=== PATIENT | female | born 1970 | race Caucasian/White ===

== ENCOUNTER 2017-01-10 16:24 | Inpatient (IN) | payer MEDICARE, OTHER ==
[2017-01-10] MEDS ORDERED: NITROGLYCERIN SL TABS 0.4 MG TAB SUBLINGUAL PRN (16:33)
[2017-01-10] MEDS ORDERED: HEPARIN SODIUM,PORCINE 5,000 UNIT/ML 1 ML VIAL IV PRN (16:34)
--- NOTE | 2017-01-10 16:37 | ED ---
General Adult HPI - General Stated complaint: DVT Time Seen by Provider: 01/10/17 16:26 Source: RN notes reviewed, old records reviewed - History of Present Illness Initial comments: This is a 46-year-old female the ER for evaluation bear patient presents today for evaluation of shortness of breath cough congestion weakness dizziness lightheadedness and left leg pain. Patient has history of lupus, is mostly on but there is but is not currently taking no secondary to no primary care doctor , patient is a transfer patient accepted for evaluation and treatment of PE, DVT. At this time patient denies new chest pain or shortness of breath, patient does not feel like she's got passed out - Related Data Home Medications Medication Instructions Recorded Confirmed DULoxetine HCL [Cymbalta] 60 mg PO DAILY 11/07/15 11/07/15 Gabapentin 800 mg PO DAILY 11/07/15 11/07/15 HYDROcodone/APAP 5-325MG [[place] 1 tab PO Q6HR PRN 11/07/15 11/07/15 5-325] LORazepam [Ativan] 1 mg PO BID 11/07/15 11/07/15 OXcarbazepine [Trileptal] 600 mg PO BID 11/07/15 11/07/15 QUEtiapine [SEROquel] 200 mg PO HS 11/07/15 11/07/15 Warfarin [Coumadin] 7.5 mg PO DAILY 11/07/15 11/07/15 Allergies Allergy/AdvReac Type Severity Reaction Status Date / Time cephalexin monohydrate Allergy Unknown Verified 11/07/15 18:33 [From Keflex] hydromorphone HCl Allergy Unknown Verified 11/07/15 18:33 [From Dilaudid] latex Allergy Unknown Verified 11/07/15 18:33 Review of Systems ROS Statement: Those systems with pertinent positive or pertinent negative responses have been documented in the HPI. ROS Other: All systems not noted in ROS Statement are negative. Past Medical History Additional Past Medical History / Comment(s): Lupus History of Any Multi-Drug Resistant Organisms: Unobtainable Past Surgical History: Unable to Obtain Past Psychological History: Unable to Obtain Smoking Status: Unknown if ever smoked Past Alcohol Use History: Unable to Obtain Past Drug Use History: Unable to Obtain General Exam General appearance: alert, in no apparent distress Head exam: Present: atraumatic, normocephalic, normal inspection Eye exam: Present: normal appearance, PERRL, EOMI. Absent: scleral icterus, conjunctival injection, periorbital swelling ENT exam: Present: normal exam, mucous membranes moist Neck exam: Present: normal inspection. Absent: tenderness, meningismus, lymphadenopathy Respiratory exam: Present: normal lung sounds bilaterally. Absent: respiratory distress, wheezes, rales, rhonchi, stridor Cardiovascular Exam: Present: regular rate, normal rhythm, normal heart sounds. Absent: systolic murmur, diastolic murmur, rubs, gallop, clicks GI/Abdominal exam: Present: soft, normal bowel sounds. Absent: distended, tenderness, guarding, rebound, rigid Extremities exam: Present: normal inspection, full ROM, normal capillary refill. Absent: tenderness, pedal edema, joint swelling, calf tenderness Back exam: Present: normal inspection Neurological exam: Present: alert, oriented X3, CN II-XII intact Psychiatric exam: Present: normal affect, normal mood Skin exam: Present: warm, dry, intact, normal color. Absent: rash Course - Reevaluation(s) Reevaluation #1: 01/10/17 16:36 Patient is in no acute distress Medical Decision Making - Medical Decision Making 46 female here for evaluation of chest pain shortness of breath leg pain. Positive the positive DVT, history of lupus is not on blood thinners, patient will be admitted for evaluation and treatment Disposition Clinical Impression: Pulmonary embolism, DVT (deep venous thrombosis), SLE (systemic lupus erythematosus) Disposition: ADMITTED IP TO THIS [facility] Condition: Fair Referrals: None,Stated [Primary Care Provider] - 1-2 days
[2017-01-10] MEDS ORDERED: SODIUM CHLORIDE 0.9% 500 ML IV STA (16:42)
[2017-01-10] MEDS ORDERED: SODIUM CHLORIDE 0.9% 1,000 ML IV STA (16:42)
[2017-01-10] MEDS ORDERED: MORPHINE SULFATE 4 MG/ML SYRINGE IVP STA (16:52)
[2017-01-10] MEDS: HEPARIN SODIUM,PORCINE/D5W PMX 25,000 UNIT in DEXTROSE/WATER 1 500ML.BAG IV SCH (17:04)
[2017-01-10 19:08] LABS: Anisocytosis Slight; CH 26.9; HCT 34.5 % (34.0-46.0); HDW 2.97; HGB 10.8 gm/dL (11.4-16.0); Hypochromasia Moderate; MCH 27.3 pg (25.0-35.0); MCHC 31.3 g/dL (31.0-37.0); MCV 87.2 fL (80.0-100.0); Mean Platelet Volume 8.7; RBC 3.96 m/uL (3.80-5.40); RDW 17.6 % (11.5-15.5); WBC 10.8 k/uL (3.8-10.6)
[2017-01-10 19:33] LABS: Creatine Kinase MB 1.4 ng/mL (0.0-2.4)
[2017-01-10 19:39] LABS: Troponin I 0.302 ng/mL (0.000-0.034)
[2017-01-10 19:39] LABS: Anion Gap 11 mmol/L; Blood Urea Nitrogen 13 mg/dL (7-17); Calcium 8.6 mg/dL (8.4-10.2); Carbon Dioxide 21 mmol/L (22-30); Chloride 104 mmol/L (98-107); Glucose 119 mg/dL (74-99); Magnesium 1.8 mg/dL (1.6-2.3); Non-African American GFR(MDRD) >60 (>60 ml/min/1.73 sqM); Potassium 3.5 mmol/L (3.5-5.1); Sodium 136 mmol/L (137-145)
--- NOTE | 2017-01-10 20:00 | ECHOF ---
Referral Reason:pe MEASUREMENTS -------- HEIGHT: 175.3 cm WEIGHT: 106.6 kg BP: 108/71 RVIDd: 3.7 cm (< 3.3) IVSd: 1.3 cm (0.6 - 1.1) LVIDd: 4.1 cm (3.9 - 5.3) LVPWd: 1.3 cm (0.6 - 1.1) IVSs: 1.6 cm LVIDs: 3.0 cm LVPWs: 1.6 cm LAESV Index (A-L): 17.93 ml/m Ao Diam: 2.9 cm (2.0 - 3.7) AV Cusp: 1.9 cm (1.5 - 2.6) LA Diam: 2.6 cm (2.7 - 3.8) MV EXCURSION: 16.963 mm (> 18.000) MV EF SLOPE: 82 mm/s (70 - 150) EPSS: 0.6 cm MV E Steve: 0.50 m/s MV DecT: 305 ms MV A Steve: 0.79 m/s MV E/A Ratio: 0.64 RAP: 5.00 mmHg RVSP: 39.16 mmHg FINDINGS -------- Sinus rhythm with extra systolic beats. This was a technically adequate study. There is mild concentric left ventricular hypertrophy. Overall left ventricular systolic function is normal with, an EF between 55 - 60 %. The right ventricle is severely enlarged. Normal LA size by volume 22+/-6 ml/m2. RA appears enlarged. Aortic valve is trileaflet and is mildly thickened. There is no evidence of aortic regurgitation. There is no evidence of aortic stenosis. The mitral valve leaflets are mildly thickened. There is trace to mild mitral regurgitation. [id number]-vf-[id number] tricuspid regurgitation present. There is mild pulmonary hypertension. The right ventricular systolic pressure, as measured by Doppler, is 39.16mmHg. The pulmonic valve was not well visualized. The aortic root size is normal. The inferior vena cava is mildly dilated. CONCLUSIONS -------- 1. Sinus rhythm with extra systolic beats. 2. Ogcm-sd-vkbrpzpw tricuspid regurgitation present. 3. There is mild pulmonary hypertension. 4. The right ventricular systolic pressure, as measured by Doppler, is 39.16mmHg. 5. The pulmonic valve was not well visualized. 6. The aortic root size is normal. 7. The inferior vena cava is mildly dilated. 8. This was a technically adequate study. 9. There is mild concentric left ventricular hypertrophy. 10. The right ventricle is severely enlarged. 11. Normal LA size by volume 22+/-6 ml/m2. 12. RA appears serverly enlarged. 13. Aortic valve is trileaflet and is mildly thickened. 14. The mitral valve leaflets are mildly thickened. 15. There is trace to mild mitral regurgitation. MIDDLE SCHOOL TEACHER: Lew Farooq RDCS
[2017-01-10] MEDS ORDERED: ONDANSETRON 4 MG/2 ML VIAL IVP PRN (20:30)
[2017-01-10] MEDS: GABAPENTIN 400 MG CAP PO SCH (21:04)
[2017-01-10] MEDS ORDERED: POTASSIUM CHLORIDE ER 20 MEQ TAB.ER PO STA (22:35)
[2017-01-10] MEDS: METOPROLOL TARTRATE 12.5 MG TAB PO SCH (23:48)
[2017-01-11 00:31] LABS: Creatine Kinase MB 1.2 ng/mL (0.0-2.4)
[2017-01-11 00:38] LABS: Troponin I 0.233 ng/mL (0.000-0.034)
[2017-01-11] MEDS: MORPHINE SULFATE 4 MG/ML SYRINGE IVP PRN ×5 (00:56→20:48)
[2017-01-11] MEDS: HEPARIN SODIUM,PORCINE/D5W PMX 25,000 UNIT in DEXTROSE/WATER 1 500ML.BAG IV SCH ×2 (05:40→17:18)
[2017-01-11 05:58] LABS: Anisocytosis Slight; Basophils # (A) 0.1 k/uL (0-0.2); Basophils % (A) 1 %; CH 27.6; CHCM 30.8; Eosinophils # (A) 0.1 k/uL (0-0.7); Eosinophils % (A) 1 %; HDW 2.95; HGB 9.9 gm/dL (11.4-16.0); Hypochromasia Moderate; Luc # (Auto) 0.17; Luc % (Auto) 2; Lymphocytes # (A) 2.9 k/uL (1.0-4.8); Lymphocytes % (A) 31 %; MCH 26.9 pg (25.0-35.0); MCHC 29.9 g/dL (31.0-37.0); Mean Platelet Volume 9.6; Monocytes # (A) 0.5 k/uL (0-1.0); Monocytes % (A) 5 %; Neutrophils # (A) 5.6 k/uL (1.3-7.7); Neutrophils % (A) 60 %; RBC 3.67 m/uL (3.80-5.40); RDW 19.1 % (11.5-15.5); WBC 9.4 k/uL (3.8-10.6); WBC (Perox) 10.03
[2017-01-11 06:11] LABS: Blood Urea Nitrogen 14 mg/dL (7-17); Calcium 8.1 mg/dL (8.4-10.2); Carbon Dioxide 21 mmol/L (22-30); Chloride 104 mmol/L (98-107); Cholesterol 96 mg/dL (<200); Glucose 112 mg/dL (74-99); HDL Cholesterol 43 mg/dL (40-60); Non-African American GFR(MDRD) >60 (>60 ml/min/1.73 sqM); Potassium 3.6 mmol/L (3.5-5.1)
[2017-01-11 06:12] LABS: Anion Gap 9 mmol/L; Sodium 134 mmol/L (137-145)
[2017-01-11] MEDS: LURASIDONE 40 MG TAB PO SCH (08:13)
[2017-01-11] MEDS: GABAPENTIN 400 MG CAP PO SCH ×3 (08:13→20:49)
[2017-01-11] MEDS: ASPIRIN 325 MG TAB PO SCH (08:13)
[2017-01-11] MEDS: METOPROLOL TARTRATE 12.5 MG TAB PO SCH (08:14)
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
--- NOTE | 2017-01-11 14:45 | HP ---
CHIEF COMPLAINT: Shortness of breath, cough and weakness. HISTORY OF PRESENT ILLNESS: This 46-year-old woman with a past medical history of multiple medical problems, including history of asthma, fibromyalgia, history of lupus anticoagulant syndrome, history of bariatric surgery, being followed by Dr. Betsey Saavedra in the outpatient setting, was supposed to be on Coumadin, but apparently because of noncompliance patient was not seeing any physicians recently. Patient is complaining of shortness and breath and leg swelling and nausea. Because of multiple symptoms, patient went to [facility] in [place] and was found to have bilateral leg DVT as well as acute pulmonary embolism. Patient was transferred to [facility] for further evaluation and treatment. There is no history of any fever, rigor, chills. No history of headache, loss of consciousness, seizures. PAST MEDICAL HISTORY: 1. History of asthma. 2. Fibromyalgia. 3. History of myocardial infarction. 4. Lupus anticoagulant syndrome. Medications prior to admission include: 1. Latuda 120 mg p.o. daily. 2. Gabapentin 800 mg t.i.d. ALLERGIES: 1. NORCO. 2. KEFLEX. 3. DILAUDID. 4. LATEX. 5. PHENERGAN. FAMILY HISTORY: History of blood disorder, CVA, TIA, hypertension, depression, cardiac problems. SOCIAL HISTORY: History of smoking. History of THC. Alcohol occasionally. REVIEW OF SYSTEMS: ENT: No diminished hearing. No diminished vision. CARVIOVASCULAR SYSTEM: As mentioned earlier. RESPIRATORY SYSTEM: As mentioned earlier. GI: No nausea, vomiting. : No dysuria, retention. NERVOUS SYSTEM: No numbness, weakness. ALLERGY/IMMUNOLOGY: No asthma, hayfever. MUSCULOSKELETAL: As mentioned earlier. HEMATOLOGY/ONCOLOGY: No history of anemia. ENDOCRINE: No history of diabetes, hypothyroidism. CONSTITUTIONAL: As mentioned earlier. DERMATOLOGY: Negative. RHEUMATOLOGY: Negative. PSYCHIATRY: As mentioned earlier. PHYSICAL EXAM: Patient is alert and oriented x3. Pulse is 95, blood pressure 105 /83, respiration 22, temperature 98.1, pulse ox 94% on 2 L. HEENT: Conjunctivae normal. Oral mucosa moist. NECK: No jugular venous distention. No carotid bruit. No lymph node enlargement. CARDIOVASCULAR: S1, S2 muffled. No S3. No S4. RESPIRATORY: Breath sounds diminished at the bases. A few rhonchi. No crackles. ABDOMEN: Soft, obese, non-tender. No mass palpable. LEGS: Minimal bilateral leg edema. NERVOUS SYSTEM: Higher functions as mentioned earlier. Moves all 4 limbs. No focal motor or sensory deficit. LYMPHATICS: No lymph node palpable in neck, axillae or groin. SKIN: No ulcer, rash, bleeding. LABS: WBC 10.2, hemoglobin 10.8. ASSESSMENT: 1. Acute bilateral leg deep vein thrombosis as well as acute pulmonary embolism. 2. IV heparin monitoring. 3. Increased white count. 4. Lupus anticoagulant syndrome and antiphospholipid antibody syndrome. 5. History of asthma. 6. History of myocardial infarction. 7. History of bariatric surgery. 8. Bowel resection. 9. History of bipolar and borderline personality disorder. 10. History of nicotine dependence. RECOMMENDATIONS AND DISCUSSION: In this 46-year-old woman who presented with multiple complex medical issues, we will monitor the patient closely, continue the current medication, continue with symptomatic treatment. IV heparin. Also recommend hematology/oncology evaluation. Resume the home medications. Importance of compliance is also being stressed to the patient. Continue to monitor. Further recommendations to follow. MTDD
[2017-01-11 17:55] LABS: INR 1.2 (<1.2); Prothrombin Time 11.7 sec (9.0-12.0)
[2017-01-11] MEDS ORDERED: WARFARIN 7.5 MG TAB PO ONE (18:00)
[2017-01-11 21:04] LABS: Appearance,Urine Clear (Clear); Bilirubin,Urine Negative (Negative); Glucose,Urine (UA) Negative (Negative); Ketones,Urine Negative (Negative); Leukocyte Esterase,Urine Negative (Negative); Mucus,Urine Rare /hpf; Nitrite,Urine Negative (Negative); Particle Count 3134; Protein,Urine 1+ (Negative); Specific Gravity,Urine 1.022 (1.001-1.035); Squamous Epithelial Cell,Urine 1 /hpf (0-4); UA Billing (MACRO vs. MICRO) MICRO; WBC,Urine 2 /hpf (0-5)
[2017-01-12] MEDS: MORPHINE SULFATE 4 MG/ML SYRINGE IVP PRN ×4 (03:50→20:07)
[2017-01-12 06:09] LABS: Anisocytosis Slight; Basophils % (A) 1 %; CH 27.9; Eosinophils # (A) 0.1 k/uL (0-0.7); Eosinophils % (A) 1 %; HCT 30.5 % (34.0-46.0); HDW 2.93; HGB 9.1 gm/dL (11.4-16.0); Hypochromasia Moderate; Luc # (Auto) 0.19; Luc % (Auto) 3; Lymphocytes # (A) 2.5 k/uL (1.0-4.8); Lymphocytes % (A) 34 %; MCHC 29.8 g/dL (31.0-37.0); MCV 90.5 fL (80.0-100.0); Mean Platelet Volume 9.2; Monocytes # (A) 0.5 k/uL (0-1.0); Monocytes % (A) 7 %; Neutrophils # (A) 4.1 k/uL (1.3-7.7); Neutrophils % (A) 56 %; RBC 3.36 m/uL (3.80-5.40); RDW 19.7 % (11.5-15.5); WBC 7.3 k/uL (3.8-10.6); WBC (Perox) 7.41
[2017-01-12 06:20] LABS: Anion Gap 10 mmol/L; Blood Urea Nitrogen 11 mg/dL (7-17); Calcium 8.4 mg/dL (8.4-10.2); Carbon Dioxide 22 mmol/L (22-30); Chloride 101 mmol/L (98-107); Glucose 109 mg/dL (74-99); Non-African American GFR(MDRD) >60 (>60 ml/min/1.73 sqM); Potassium 3.5 mmol/L (3.5-5.1); Sodium 133 mmol/L (137-145)
[2017-01-12 06:27] LABS: INR 1.1 (<1.2); Partial Thromboplastin Time 47.6 sec (22.0-30.0)
[2017-01-12] MEDS: HEPARIN SODIUM,PORCINE/D5W PMX 25,000 UNIT in DEXTROSE/WATER 1 500ML.BAG IV SCH ×2 (06:37→22:38)
[2017-01-12] MEDS: LURASIDONE 40 MG TAB PO SCH (07:45)
[2017-01-12] MEDS: GABAPENTIN 400 MG CAP PO SCH ×3 (07:46→22:37)
[2017-01-12] MEDS: ASPIRIN 325 MG TAB PO SCH (07:46)
--- NOTE | 2017-01-12 09:53 | P.PN ---
Subjective Principal diagnosis: PE This is a pleasant 46-year-old female with a prior history of antiphospholipid antibody syndrome who quit taking her Coumadin about a year or year and a half ago presented to [facility] with complaints of shortness of breath, bilateral leg pain generally not feeling well and near syncope ongoing for about 3 days. The Computed tomography scan found patient to have a PE and venous Doppler was positive for DVTs bilaterally. Echocardiogram was done that showed an ejection fraction of 55-60% with a severely enlarged RV. EKG did show signs of strain. Troponin was mildly elevated. She denies having any chest pain or discomfort at this point, and she stated that the shortness of breath is a slightly better. Objective - Vital Signs Vital signs: Vital Signs Temp 97.8 F 01/12/17 07:54 Pulse 82 01/12/17 07:59 Resp 18 01/12/17 07:59 BP 105/70 01/12/17 07:54 Pulse Ox 95 01/12/17 07:54 Intake & Output 01/11/17 01/12/17 01/12/17 18:59 06:59 18:59 Intake Total 1976.813 454.232 360 Output Total 850 200 250 Balance 1126.813 254.232 110 Weight 117.8 kg Intake: Intake, IV Titration 1596.813 454.232 Amount Heparin Sodium,Porcine/ 396.813 454.232 D5w Pmx 25,000 unit In Dextrose/Water 1 500ml. bag @ 18 UNITS/KG/HR 38. 37 mls/hr IV .Q13H2M SARAI Rx#:[id number] Sodium Chloride 0.9% 1, 1200 000 ml @ 100 mls/hr IV . Q10H STA Rx#:[id number] Oral 380 360 Output: Urine 850 200 250 Other: Voiding Method Toilet Toilet Toilet # Voids 1 1 1 - Constitutional General appearance: Present: no acute distress - Respiratory Respiratory: bilateral: CTA - Cardiovascular Rhythm: regular Heart sounds: normal: S1, S2 - Labs CBC & Chem 7: 01/12/17 05:50 01/12/17 05:50 Labs: Abnormal Lab Results - Last 24 Hours (Table) 01/11/17 01/11/17 01/12/17 Range/Units 05:40 20:45 05:50 RBC 3.36 L (3.80-5.40) m/uL Hgb 9.1 L (11.4-16.0) gm/dL Hct 30.5 L (34.0-46.0) % MCHC 29.8 L (31.0-37.0) g/dL RDW 19.7 H (11.5-15.5) % INR 1.2 H (<1.2) APTT (22.0-30.0) sec Sodium (137-145) mmol/L Glucose (74-99) mg/dL Urine Protein 1+ H (Negative) Urine Mucus Rare H (None) /hpf 01/12/17 01/12/17 Range/Units 05:50 05:50 RBC (3.80-5.40) m/uL Hgb (11.4-16.0) gm/dL Hct (34.0-46.0) % MCHC (31.0-37.0) g/dL RDW (11.5-15.5) % INR (<1.2) APTT 47.6 H (22.0-30.0) sec Sodium 133 L (137-145) mmol/L Glucose 109 H (74-99) mg/dL Urine Protein (Negative) Urine Mucus (None) /hpf Assessment and Plan Plan: This is a pleasant 46-year-old female patient with history of antiphospholipid antibody syndrome was supposed to be on Coumadin but she stopped taking the Coumadin presented to the hospital with bilateral DVT and PE. Currently the patient is on heparin IV. I am going to give her 7.5 mg of Coumadin today and check the INR tomorrow. I don't think the patient is a candidate to receive any of the new or anticoagulation agents. Beside that she continues to be hemodynamically stable with marginal blood pressure.
--- NOTE | 2017-01-12 12:12 | XR ---
EXAMINATION TYPE: XR chest 1V portable DATE OF EXAM: 01/12/2017 COMPARISON: Chest x-ray from September 25, 2009. HISTORY: Shortness of breath TECHNIQUE: Single frontal view of the chest is obtained. FINDINGS: There is no focal air space opacity, pleural effusion, or pneumothorax seen. The cardiac silhouette size is within normal limits. The osseous structures are intact. IMPRESSION: No acute process.
--- NOTE | 2017-01-12 12:50 | P.PN ---
Subjective A 46-year-old female patient with known history of antiphospholipid syndrome, lupus anticoagulant will has been treated in the past for pulmonary embolism. The patient reports a previous history of DVT and pulmonary embolism that occurred approximately 9 years ago. She was treated with warfarin for total of 7 years and ultimately she quit the treatment approximately 3 years ago. Yesterday she presented to the hospital because of worsening shortness of breath. At the same time she was having some bloody mucus. She has noted limitation of exercise capacity. She claims that she was able to ride a bike and she was unable to do that yesterday. For that reason she came into the hospital on the CAT scan of the chest was done and the patient was found to have bilateral pulmonary embolism and she was referred to [facility]. She has minor troponin leak. Her troponins are 0.3 and 0.2 respectively. She has occasional PVCs on her EKG. Her echocardiogram shows an ejection fraction of 55-60%. There is some enlargement of the right ventricle and a PA pressure was estimated to be around 39 mmHg. She probably may have an underlying chronic pulmonary hypertension. The clot burden is not extensive based on the CT angios. The patient currently is on room air. No hemodynamic instability. No dyspnea at rest. Some exertional dyspnea is present. Legs are swollen chronically and Doppler of the lower extremity still pending for now. She has varicose veins in her legs pH is also history of fibromyalgia, bipolar disorder, borderline percent disorder, and obesity. She has undergone previous bariatric surgery. No recent surgery. No fall. No trauma. She is currently on IV heparin. On 01/12/2017 the patient is being seen in follow-up. The patient is doing well. No cough. No hemoptysis pH shortness of breath is improved. No pleurisy. She is having some pain in the right lower extremity FL essentially at the calf area and a Doppler will be done to make sure there is no evidence of pulmonary embolism. The patient on IV heparin. The patient was started on Coumadin. PT/INR is subtherapeutic at this point. No other significant events overnight. Hemoglobin stable at 9.1. There is been some drop in hemoglobin since the patient's admission and this is something to watch for. Platelet counts are also stable at 156. Objective - Vital Signs Vital signs: Vital Signs Temp 97.8 F 01/12/17 07:54 Pulse 82 01/12/17 07:59 Resp 18 01/12/17 07:59 BP 105/70 01/12/17 07:54 Pulse Ox 95 01/12/17 07:54 Intake & Output 01/11/17 01/12/17 01/12/17 18:59 06:59 18:59 Intake Total 1976.813 454.232 360 Output Total 850 200 250 Balance 1126.813 254.232 110 Weight 117.8 kg Intake: Intake, IV Titration 1596.813 454.232 Amount Heparin Sodium,Porcine/ 396.813 454.232 D5w Pmx 25,000 unit In Dextrose/Water 1 500ml. bag @ 18 UNITS/KG/HR 38. 37 mls/hr IV .Q13H2M SARAI Rx#:[id number] Sodium Chloride 0.9% 1, 1200 000 ml @ 100 mls/hr IV . Q10H STA Rx#:[id number] Oral 380 360 Output: Urine 850 200 250 Other: Voiding Method Toilet Toilet Toilet # Voids 1 1 1 - Exam Obese, calm and comfortable likely distress.Head exam was generally normal. There was no scleral icterus or corneal arcus. Mucous membranes were moist.Neck was supple and without jugular venous distension, thyromegaly, or carotid bruits. Carotids were easily palpable bilaterally. There was no adenopathy. Lung sounds are diminished bilaterally otherwise clear. There is no wheezes or rhonchi any crackles.Cardiac exam revealed the PMI to be normally situated and sized. The rhythm was regular and no extrasystoles were noted during several minutes of auscultation. The first and second heart sounds were normal and physiologic splitting of the second heart sound was noted. There were no murmurs , rubs, clicks, or gallops.Abdominal exam revealed normal bowel sounds. The abdomen was soft, non-tender, and without masses, organomegaly, or appreciable enlargement of the abdominal aorta. Extremities reveal trace edema and there is no cyanosis or clubbing at this point. There is varicose veins. No calf pain or tenderness. Neurologically the patient is awake and alert. - Labs CBC & Chem 7: 01/12/17 05:50 01/12/17 05:50 Labs: Abnormal Lab Results - Last 24 Hours (Table) 01/11/17 01/11/17 01/12/17 Range/Units 05:40 20:45 05:50 RBC 3.36 L (3.80-5.40) m/uL Hgb 9.1 L (11.4-16.0) gm/dL Hct 30.5 L (34.0-46.0) % MCHC 29.8 L (31.0-37.0) g/dL RDW 19.7 H (11.5-15.5) % INR 1.2 H (<1.2) APTT (22.0-30.0) sec Sodium (137-145) mmol/L Glucose (74-99) mg/dL Urine Protein 1+ H (Negative) Urine Mucus Rare H (None) /hpf 01/12/17 01/12/17 Range/Units 05:50 05:50 RBC (3.80-5.40) m/uL Hgb (11.4-16.0) gm/dL Hct (34.0-46.0) % MCHC (31.0-37.0) g/dL RDW (11.5-15.5) % INR (<1.2) APTT 47.6 H (22.0-30.0) sec Sodium 133 L (137-145) mmol/L Glucose 109 H (74-99) mg/dL Urine Protein (Negative) Urine Mucus (None) /hpf Assessment and Plan Plan: Assessment 1 acute pulmonary embolism. There is a recurrent event knowing that the patient had previous DVT and pulmonary embolism approximately 9 years ago and she's been off anticoagulation for the past 2 years. There is an unprovoked event. There is underlying hypercoagulability. On 01/12/2013, the patient on IV heparin and the patient is also being integrated with warfarin. PT/INR is subtherapeutic. INR today's is 1.1. PTT is therapeutic at 47.6. We'll monitor the hemoglobin. We'll obtain a Doppler of the lower extremity. 2 lupus anticoagulant and possible antiphospholipid syndrome 3 obesity with a previous Bariatric surgery and Ibis-en-Y gastric bypass 4 fibromyalgia 5 bipolar disorder 6 borderline personality disorder 7 bronchial asthma 8 pulmonary hypertension, partly chronic, probably further exacerbated by acute pulmonary event 9 troponin leak secondary to above Plan Continue articulation with IV heparin and transitioned this patient to warfarin maintaining INR between 2 and 3. Proceed with Doppler of the lower extremities to rule out DVT. Continue anticoagulation. Clinically stable.
--- NOTE | 2017-01-12 17:49 | PN ---
DATE OF SERVICE: 01/11/2017 This 46-year-old woman who was admitted with shortness of breath, cough and weakness had acute bilateral DVT as well as pulmonary embolism. Patient had IV heparin. Patient still has some shortness of breath. Patient was seen by Dr. Domingo and Cardiology and was not deemed a candidate for any thrombolytic or aggressive treatment at this time. The troponin was found to be 0.302. PAST MEDICAL HISTORY: History of asthma, fibromyalgia, history of memory impairment, history of myocardial infarction, history of bariatric surgery. REVIEW OF SYSTEMS: CARDIOVASCULAR: No angina. RESPIRATORY: As mentioned earlier. GI: No nausea. : No dysuria. NERVOUS SYSTEM: No numbness or weakness. Current medications are: 1. Aspirin 325. 2. Neurontin. 3. Heparin. 4. Latuda. 5. Morphine sulfate. 6. Zofran. 7. Coumadin. PHYSICAL EXAMINATION: The patient is alert and oriented x3. Pulse is 89, blood pressure 109/64, respirations 20, temperature 98 degrees, pulse ox 93% on 2-L. HEENT: Conjunctivae normal. NECK: No jugular venous distention. CARDIOVASCULAR: S1, S2. RESPIRATORY: Breath sounds diminished at the bases. A few scattered rhonchi and crackles. ABDOMEN: Soft, nontender, obese. LEGS: Bilateral leg edema. NERVOUS SYSTEM: No focal deficits. LABS: WBC 9, hemoglobin 9.9. ASSESSMENT: 1. Acute bilateral DVT with acute pulmonary embolism. 2. IV heparin monitoring. 3. Increased WBC. 4. Lupus syndrome and antiphospholipid antibody syndrome. 5. History of asthma. 6. History of myocardial infarction. 7. History of bariatric surgery. 8. Bowel resection. 9. History of bipolar and borderline personality disorder. 10. History of noncompliance. RECOMMENDATIONS AND DISCUSSION: Continue with current medications, continue with monitoring, continue with symptomatic treatment. Otherwise at this time I would recommend continue with IV heparin. Coumadin has been initiated. Monitor PT, INR closely. Guarded prognosis. Further recommendations to follow. See orders for details. MTDD
[2017-01-12] MEDS ORDERED: WARFARIN 7.5 MG TAB PO ONE (18:00)
--- NOTE | 2017-01-12 19:18 | US ---
EXAMINATION TYPE: US venous doppler duplex LE DATE OF EXAM: 01/12/2017 2:57 PM COMPARISON: NONE CLINICAL HISTORY: pain. SIDE PERFORMED: Bilateral TECHNIQUE: The lower extremity deep venous system is examined utilizing real time linear array sonog poly with graded compression, doppler sonography and color-flow sonography. VESSELS IMAGED: External Iliac Vein (EIV) Common Femoral Vein Deep Femoral Vein Greater Saphenous Vein * Femoral Vein Popliteal Vein Small Saphenous Vein * Proximal Calf Veins (* superficial vessels) Right Leg: Positive as seen for DVT Left Leg: Positive as seen for DVT, not completely occlusive IMPRESSION: Grayscale, color doppler, spectral doppler imaging performed of the deep veins of the lo wer extremities. There is normal flow, compressibility, vascular waveforms bilaterally until the pop liteal vein. The right popliteal vein proximal to proximal calf veins appears to be completely occlud ed (noncompressible); including proximal superficial saphenous vein (partial compression). The left p opliteal vein from mid to proximal calf veins appears to have non-occlusive clot (see waveforms and p artial compressibility).
--- NOTE | 2017-01-12 21:48 | CONS ---
DATE OF SERVICE: 01/11/17 REASON FOR CONSULTATION: Deep venous thrombosis. CHIEF COMPLAINT: Shortness of breath. Kenyatta is a pleasant 46 -year-old lady who presented to [facility] with complaint of shortness of breath, feeling nauseated and sick to her stomach. At the emergency department, she had venous Doppler which revealed bilateral lower extremity deep venous thrombosis and also Ct scan of the chest revealed bilateral pulmonary embolism so she ended up being transferred to [facility] for further evaluation and recommendation and she was started on intravenous heparin. This episode happened without any provocative event such as recent surgery, trauma, prolonged immobilization or a long trip, etc. She claims that she has not been using any control pills or any other medication which increases the risk of thrombosis. She stated also that about 7 years ago, she was diagnosed with a blood clot and at that time also there was no obvious provocative factor. She has some workup done and she was told that she has lupus anticoagulant and she was supposed to be on skilled nursing anticoagulation and she has been on warfarin. However, over a year or so she has stopped taking Warfarin because of uncompliance with follow-up with the Clinic. As stated, this episode of deep venous thrombosis was unprovoked and according to the patient, seven years ago, it was unprovoked as well. She states that there is history of blood clots in her mother. The patient is short of breath and she is feeling nauseated. No fever. She has had night sweats for several months. No weight loss. No vomiting. No change in her bowel habits. No reported melena, hematochezia, hematuria, hemoptysis, hematemesis or epistaxis and no use of control pills. She has a history of five pregnancies, two miscarriages and three full term pregnancies and during . She used to use control pills many years ago without any thrombotic complication as well. Her past medical history as stated she has previous history of deep venous thrombosis attributed to lupus anticoagulation. She has history of asthma, fibromyalgia and positive history of questionable myocardial infarction. She has history of depression. Medications prior to admission include: 1. Latuda 120 mg daily. 2. Gabapentin 800 mg t.i.d. ALLERGIES: ALLERGIC TO NORCO, KEFLEX, DILAUDID AND LATEX. Family history: There is history of deep venous thrombosis in her mother and history of TIA/stroke and positive for coronary artery disease. In regards to malignancy, she stated that her father had throat cancer and melanoma. SOCIAL HISTORY: She is a smoker. There is a history of TSH. She drinks alcohol occasionally. REVIEW OF SYSTEMS: As stated above in the history of present illness. Otherwise , negative. On physical examination, she is alert and oriented times three. She does not appear to be in any acute distress at this time. Well developed and well nourished, overweight. Her vital signs are temperature 98.0, afebrile, pulse 89 and regular, respiratory rate 20. Blood pressure 109/64. Heent: Normocephalic, atraumatic. No obvious icterus. Neck supple. No jugular venous distention. Chest: Equal expansion bilaterally. Lungs are clear to auscultation and percussion. Heart is regular rate and rhythm. Abdomen is soft, no hepatomegaly, organomegaly or masses. Bowel sounds present. Extremities revealed trace edema bilaterally. Skin: No significant bruise or petechia. Lymphatics: No peripherally enlarged cervical, supraclavicular lymph node. Musculoskeletal: Moving all extremities appropriately. No percussion tenderness, equal expansion. Laboratory data: WBC 9.4, hemoglobin 9.9, hematocrit 33.0, platelets 146. Sodium 134, potassium 3.6, chloride 104. BUN 14, creatinine 0.64. IMPRESSION: Unprovoked bilateral deep venous thrombosis and pulmonary emboli in this lady who had a previous history of venous thrombosis attributed to lupus anticoagulant. However, those records are not available to me and she stated that she was diagnosed with that about seven years ago. RECOMMENDATIONS: 1. For the time being, continue with current anticoagulation. The patient will require skilled nursing anticoagulation with either Warfarin or one of the new oral anticoagulation. 2. We discussed the importance of compliance. 3. We also discussed the importance of discontinue smoking. 4. In regards to her hypercoagulable state, this needs to be further evaluated and investigated in the outpatient setting, maybe a full hypercoagulable workup will need to be obtained as well. For the time being, it is not going to alter the medical management but I highly recommend to pursue coagulable workup including repeat lupus anticoagulation in the outpatient setting. 5. Monitor CBC and platelet count while she is on heparin as an inpatient. The above was discussed with the patient and I have answered all her questions to her satisfaction. Thank you for asking us to participate in the care of this nice lady. KARI
[2017-01-12] MEDS: DOCUSATE 100 MG CAP PO SCH (22:37)
[2017-01-13] MEDS: SENNOSIDES 8.6 MG TAB PO SCH ×2 (00:09→08:28)
[2017-01-13] MEDS: MORPHINE SULFATE 4 MG/ML SYRINGE IVP PRN ×6 (00:09→23:56)
[2017-01-13 06:30] LABS: Anisocytosis Slight; Basophils % (A) 0 %; CH 27.8; CHCM 30.6; Eosinophils # (A) 0.1 k/uL (0-0.7); Eosinophils % (A) 2 %; HCT 29.1 % (34.0-46.0); HDW 3.02; HGB 8.8 gm/dL (11.4-16.0); Hypochromasia Marked; Luc # (Auto) 0.15; Luc % (Auto) 3; Lymphocytes # (A) 1.7 k/uL (1.0-4.8); Lymphocytes % (A) 34 %; MCH 27.8 pg (25.0-35.0); MCHC 30.3 g/dL (31.0-37.0); MCV 91.6 fL (80.0-100.0); Macrocytosis Slight; Mean Platelet Volume 9.2; Monocytes # (A) 0.3 k/uL (0-1.0); Monocytes % (A) 6 %; Neutrophils # (A) 2.7 k/uL (1.3-7.7); Neutrophils % (A) 55 %; RBC 3.18 m/uL (3.80-5.40); RDW 19.9 % (11.5-15.5); WBC 4.9 k/uL (3.8-10.6); WBC (Perox) 4.93
[2017-01-13 06:41] LABS: INR 1.2 (<1.2); Partial Thromboplastin Time 38.8 sec (22.0-30.0); Prothrombin Time 11.8 sec (9.0-12.0)
[2017-01-13 06:52] LABS: Anion Gap 5 mmol/L; Blood Urea Nitrogen 8 mg/dL (7-17); Calcium 8.2 mg/dL (8.4-10.2); Carbon Dioxide 23 mmol/L (22-30); Chloride 104 mmol/L (98-107); Glucose 90 mg/dL (74-99); Non-African American GFR(MDRD) >60 (>60 ml/min/1.73 sqM); Potassium 3.8 mmol/L (3.5-5.1); Sodium 132 mmol/L (137-145)
[2017-01-13] MEDS: LEVALBUTEROL NEB 1.25 MG/3 ML AMP INHALATION SCH ×3 (07:44→19:58)
[2017-01-13] MEDS: DOCUSATE 100 MG CAP PO SCH ×2 (08:28→20:14)
[2017-01-13] MEDS: LURASIDONE 40 MG TAB PO SCH (08:28)
[2017-01-13] MEDS: ASPIRIN 325 MG TAB PO SCH (08:28)
[2017-01-13] MEDS: GABAPENTIN 400 MG CAP PO SCH ×3 (08:28→20:14)
--- NOTE | 2017-01-13 09:31 | P.PN ---
Subjective Principal diagnosis: PE This is a pleasant 46-year-old female with a prior history of antiphospholipid antibody syndrome who quit taking her Coumadin about a year or year and a half ago presented to [facility] with complaints of shortness of breath, bilateral leg pain generally not feeling well and near syncope ongoing for about 3 days. The Computed tomography scan found patient to have a PE and venous Doppler was positive for DVTs bilaterally. Echocardiogram was done that showed an ejection fraction of 55-60% with a severely enlarged RV. EKG did show signs of strain. Troponin was mildly elevated. She denies having any chest pain or discomfort at this point, and she stated that the shortness of breath is a slightly better. Objective - Vital Signs Vital signs: Vital Signs Temp 98.6 F 01/13/17 04:00 Pulse 74 01/13/17 07:54 Resp 20 01/13/17 04:00 BP 112/66 01/13/17 04:00 Pulse Ox 93 L 01/13/17 04:00 Intake & Output 01/12/17 01/13/17 01/13/17 18:59 06:59 18:59 Intake Total 725 500 286.524 Output Total 650 Balance 75 500 286.524 Weight 118.8 kg Intake: Intake, IV Titration 500 286.524 Amount Heparin Sodium,Porcine/ 500 286.524 D5w Pmx 25,000 unit In Dextrose/Water 1 500ml. bag @ 18 UNITS/KG/HR 38. 37 mls/hr IV .Q13H2M SARAI Rx#:[id number] Oral 725 Output: Urine 650 Other: Voiding Method Toilet Toilet # Voids 1 2 # Bowel Movements 0 - Constitutional General appearance: Present: no acute distress - Respiratory Respiratory: bilateral: CTA - Cardiovascular Rhythm: regular Heart sounds: normal: S1, S2 - Labs CBC & Chem 7: 01/13/17 05:57 01/13/17 05:57 Labs: Abnormal Lab Results - Last 24 Hours (Table) 01/13/17 01/13/17 01/13/17 Range/Units 05:57 05:57 05:57 RBC 3.18 L (3.80-5.40) m/uL Hgb 8.8 L (11.4-16.0) gm/dL Hct 29.1 L (34.0-46.0) % MCHC 30.3 L (31.0-37.0) g/dL RDW 19.9 H (11.5-15.5) % Plt Count 149 L (150-450) k/uL INR 1.2 H (<1.2) APTT 38.8 H (22.0-30.0) sec Sodium 132 L (137-145) mmol/L Creatinine 0.50 L (0.52-1.04) mg/dL Calcium 8.2 L (8.4-10.2) mg/dL Assessment and Plan Plan: This is a pleasant 46-year-old female patient with history of antiphospholipid antibody syndrome was supposed to be on Coumadin but she stopped taking the Coumadin presented to the hospital with bilateral DVT and PE. Currently the patient is on heparin IV. I am going to give her 10 mg of Coumadin today and check the INR tomorrow. I don't think the patient is a candidate to receive any of the new or anticoagulation agents. Beside that she continues to be hemodynamically stable with marginal blood pressure.
[2017-01-13] MEDS: HEPARIN SODIUM,PORCINE/D5W PMX 25,000 UNIT in DEXTROSE/WATER 1 500ML.BAG IV SCH ×2 (12:09→20:19)
--- NOTE | 2017-01-13 13:48 | P.PN ---
Subjective Principal diagnosis: Acute pulmonary embolism and DVT A 46-year-old female patient with known history of antiphospholipid syndrome, lupus anticoagulant will has been treated in the past for pulmonary embolism. The patient reports a previous history of DVT and pulmonary embolism that occurred approximately 9 years ago. She was treated with warfarin for total of 7 years and ultimately she quit the treatment approximately 3 years ago. Yesterday she presented to the hospital because of worsening shortness of breath. At the same time she was having some bloody mucus. She has noted limitation of exercise capacity. She claims that she was able to ride a bike and she was unable to do that yesterday. For that reason she came into the hospital on the CAT scan of the chest was done and the patient was found to have bilateral pulmonary embolism and she was referred to [facility]. She has minor troponin leak. Her troponins are 0.3 and 0.2 respectively. She has occasional PVCs on her EKG. Her echocardiogram shows an ejection fraction of 55-60%. There is some enlargement of the right ventricle and a PA pressure was estimated to be around 39 mmHg. She probably may have an underlying chronic pulmonary hypertension. The clot burden is not extensive based on the CT angios. The patient currently is on room air. No hemodynamic instability. No dyspnea at rest. Some exertional dyspnea is present. Legs are swollen chronically and Doppler of the lower extremity still pending for now. She has varicose veins in her legs pH is also history of fibromyalgia, bipolar disorder, borderline percent disorder, and obesity. She has undergone previous bariatric surgery. No recent surgery. No fall. No trauma. She is currently on IV heparin. On 01/12/2017 the patient is being seen in follow-up. The patient is doing well. No cough. No hemoptysis pH shortness of breath is improved. No pleurisy. She is having some pain in the right lower extremity IL essentially at the calf area and a Doppler will be done to make sure there is no evidence of pulmonary embolism. The patient on IV heparin. The patient was started on Coumadin. PT/INR is subtherapeutic at this point. No other significant events overnight. Hemoglobin stable at 9.1. There is been some drop in hemoglobin since the patient's admission and this is something to watch for. Platelet counts are also stable at 156. On 01/13/2017, patient has shortness of breath, no cough, no wheezing, no chest pain, no fever, no chills, no hemoptysis. Remains on heparin and now on Coumadin but remains subtherapeutic. Plan is to get Coumadin therapeutic and then she can be discharged home and to remain on Coumadin lifetime. Objective - Vital Signs Vital signs: Vital Signs Temp 98.5 F 01/13/17 08:00 Pulse 76 01/13/17 13:40 Resp 18 01/13/17 08:00 BP 118/75 01/13/17 08:00 Pulse Ox 99 01/13/17 08:00 Intake & Output 01/12/17 01/13/17 01/13/17 18:59 06:59 18:59 Intake Total 725 500 500.000 Output Total 650 Balance 75 500 500.000 Weight 118.8 kg Intake: Intake, IV Titration 500 500.000 Amount Heparin Sodium,Porcine/ 500 500.000 D5w Pmx 25,000 unit In Dextrose/Water 1 500ml. bag @ 18 UNITS/KG/HR 38. 37 mls/hr IV .Q13H2M [facility] Rx#:[id number] Oral 725 Output: Urine 650 Other: Voiding Method Toilet Toilet Toilet # Voids 1 2 # Bowel Movements 0 - Exam Obese, calm and comfortable likely distress.Head exam was generally normal. There was no scleral icterus or corneal arcus. Mucous membranes were moist.Neck was supple and without jugular venous distension, thyromegaly, or carotid bruits. Carotids were easily palpable bilaterally. There was no adenopathy. Lung sounds are diminished bilaterally otherwise clear. There is no wheezes or rhonchi any crackles.Cardiac exam revealed the PMI to be normally situated and sized. The rhythm was regular and no extrasystoles were noted during several minutes of auscultation. The first and second heart sounds were normal and physiologic splitting of the second heart sound was noted. There were no murmurs , rubs, clicks, or gallops.Abdominal exam revealed normal bowel sounds. The abdomen was soft, non-tender, and without masses, organomegaly, or appreciable enlargement of the abdominal aorta. Extremities reveal trace edema and there is no cyanosis or clubbing at this point. There is varicose veins. No calf pain or tenderness. Neurologically the patient is awake and alert. - Labs CBC & Chem 7: 01/13/17 05:57 01/13/17 05:57 Labs: Abnormal Lab Results - Last 24 Hours (Table) 01/13/17 01/13/17 01/13/17 Range/Units 05:57 05:57 05:57 RBC 3.18 L (3.80-5.40) m/uL Hgb 8.8 L (11.4-16.0) gm/dL Hct 29.1 L (34.0-46.0) % MCHC 30.3 L (31.0-37.0) g/dL RDW 19.9 H (11.5-15.5) % Plt Count 149 L (150-450) k/uL INR 1.2 H (<1.2) APTT 38.8 H (22.0-30.0) sec Sodium 132 L (137-145) mmol/L Creatinine 0.50 L (0.52-1.04) mg/dL Calcium 8.2 L (8.4-10.2) mg/dL 01/13/17 Range/Units 12:51 RBC (3.80-5.40) m/uL Hgb (11.4-16.0) gm/dL Hct (34.0-46.0) % MCHC (31.0-37.0) g/dL RDW (11.5-15.5) % Plt Count (150-450) k/uL INR (<1.2) APTT 66.6 H (22.0-30.0) sec Sodium (137-145) mmol/L Creatinine (0.52-1.04) mg/dL Calcium (8.4-10.2) mg/dL Assessment and Plan Plan: 1 acute pulmonary embolism. There is a recurrent event knowing that the patient had previous DVT and pulmonary embolism approximately 9 years ago and she's been off anticoagulation for the past 2 years. There is an unprovoked event. There is underlying hypercoagulability. On 01/12/2013, the patient on IV heparin and the patient is also being integrated with warfarin. PT/INR is subtherapeutic. INR today's is 1.1. PTT is therapeutic at 47.6. We'll monitor the hemoglobin. We'll obtain a Doppler of the lower extremity. On 01/13/2017, PTT is 66.6, INR is 1.2. 2 lupus anticoagulant and possible antiphospholipid syndrome 3 obesity with a previous Bariatric surgery and Ibis-en-Y gastric bypass 4 fibromyalgia 5 bipolar disorder 6 borderline personality disorder 7 bronchial asthma 8 pulmonary hypertension, partly chronic, probably further exacerbated by acute pulmonary event 9 troponin leak secondary to above Recommendation: Continue IV heparin, patient was transitioned to Coumadin, once the level is therapeutic, could be discharged home on follow-up on outpatient basis. Time with Patient: Less than 30
--- NOTE | 2017-01-13 13:56 | PN ---
DATE OF SERVICE: 01/12/2017 This 46-year-old woman who was admitted with acute bilateral DVT and acute pulmonary embolism is being closely monitored. The patient is on IV heparin. The patient was complaining of right leg pain. The patients saturation is normal on room air. Still complaining of some shortness of breath on mild exertion. Otherwise DVT is noted. No chest pain, no palpitations. 2-D echo showed enlargement. PAST MEDICAL HISTORY: Reviewed. REVIEW OF SYSTEMS: CARDIOVASCULAR: No angina. RESPIRATORY: As mentioned earlier. GI: No nausea. : No dysuria. NERVOUS SYSTEM: No numbness or weakness. ASSESSMENT: 1. Acute bilateral DVT with acute pulmonary embolism. 2. IV heparin monitoring. 3. Increased WBC. 4. Lupus anticoagulant and antiphospholipid syndrome. 5. History of asthma. 6. History of myocardial infarction. 7. History of noncompliance. 8. History of bariatric surgery. RECOMMENDATIONS AND DISCUSSION: In this 46-year-old woman who presented with multiple complex medical issues, will monitor the patient closely. Continue the current medications, continue symptomatic treatment. Otherwise, at this time I recommend continue with IV heparin. Closely monitor. Further recommendations to follow. MTDD
[2017-01-13] MEDS ORDERED: WARFARIN 10 MG TAB PO ONE (18:00)
[2017-01-13] MEDS: TEMAZEPAM 15 MG CAP PO PRN (21:08)
[2017-01-14] MEDS: MORPHINE SULFATE 4 MG/ML SYRINGE IVP PRN ×3 (03:44→20:54)
[2017-01-14 07:27] LABS: INR 1.6 (<1.2); Partial Thromboplastin Time 60.4 sec (22.0-30.0); Prothrombin Time 15.3 sec (9.0-12.0)
[2017-01-14 07:32] LABS: Anion Gap 7 mmol/L; Blood Urea Nitrogen 6 mg/dL (7-17); Calcium 8.1 mg/dL (8.4-10.2); Carbon Dioxide 25 mmol/L (22-30); Chloride 105 mmol/L (98-107); Glucose 84 mg/dL (74-99); Non-African American GFR(MDRD) >60 (>60 ml/min/1.73 sqM); Potassium 3.8 mmol/L (3.5-5.1); Sodium 137 mmol/L (137-145)
[2017-01-14 08:10] LABS: Anisocytosis Slight; Basophils % (A) 0 %; CH 26.9; CHCM 30.3; Eosinophils # (A) 0.1 k/uL (0-0.7); Eosinophils % (A) 1 %; HCT 27.4 % (34.0-46.0); HDW 3.05; HGB 8.4 gm/dL (11.4-16.0); Hypochromasia Marked; Luc % (Auto) 4; Lymphocytes # (A) 1.8 k/uL (1.0-4.8); Lymphocytes % (A) 38 %; MCH 27.4 pg (25.0-35.0); MCHC 30.7 g/dL (31.0-37.0); MCV 89.3 fL (80.0-100.0); Mean Platelet Volume 8.5; Monocytes # (A) 0.3 k/uL (0-1.0); Monocytes % (A) 7 %; Neutrophils # (A) 2.3 k/uL (1.3-7.7); Neutrophils % (A) 49 %; RBC 3.07 m/uL (3.80-5.40); WBC 4.6 k/uL (3.8-10.6); WBC (Perox) 4.94
[2017-01-14] MEDS: ASPIRIN 325 MG TAB PO SCH (08:10)
[2017-01-14] MEDS: DOCUSATE 100 MG CAP PO SCH ×2 (08:10→20:55)
[2017-01-14] MEDS: LURASIDONE 40 MG TAB PO SCH (08:11)
[2017-01-14] MEDS: GABAPENTIN 400 MG CAP PO SCH ×3 (08:11→20:55)
[2017-01-14] MEDS: SENNOSIDES 8.6 MG TAB PO SCH (08:12)
--- NOTE | 2017-01-14 08:51 | PN ---
DATE OF SERVICE: 01/13/2017 This 46-year-old woman who was admitted with bilateral DVT, also had some shortness of breath. No chest pain or palpitation. No fever. Multiple consultants are following the patient. The patient is on IV heparin. On exam, alert and oriented x3. Pulse 78, blood pressure 118/55, respirations 18, temperature 97 degrees, pulse ox 95% on room air. HEENT: Conjunctivae normal. NECK: No jugular venous distention. CARDIOVASCULAR: S1 and S2 muffled. RESPIRATORY: Breath sounds diminished at the bases. No rhonchi and no crackles. ABDOMEN: Soft, nontender. LEGS: Bilateral leg edema. NERVOUS SYSTEM: No focal deficits. LABS: Hemoglobin 8.8 and APTT noted. ASSESSMENT: 1. Acute bilateral deep venous thrombosis with acute pulmonary embolism. 2. IV heparin monitoring. 3. Increased WBC. 4. Lupus anticoagulant antiphospholipid syndrome. 5. History of asthma. 6. History of myocardial infarction. 7. History of noncompliance. 8. History of bariatric surgery. RECOMMENDATIONS AND DISCUSSION: Recommend to continue current medications. Continue with monitoring and symptomatic treatment. Otherwise at this time will monitor patient closely. Continue the IV heparin. Will closely monitor with Pulmonary and Hematology/Oncology. Further recommendations to follow. MTDD
[2017-01-14] MEDS: LEVALBUTEROL NEB 1.25 MG/3 ML AMP INHALATION SCH ×3 (09:26→19:59)
--- NOTE | 2017-01-14 10:06 | P.PN ---
Subjective Principal diagnosis: PE This is a pleasant 46-year-old female with a prior history of antiphospholipid antibody syndrome who quit taking her Coumadin about a year or year and a half ago presented to [facility] with complaints of shortness of breath, bilateral leg pain generally not feeling well and near syncope ongoing for about 3 days. The Computed tomography scan found patient to have a PE and venous Doppler was positive for DVTs bilaterally. Echocardiogram was done that showed an ejection fraction of 55-60% with a severely enlarged RV. EKG did show signs of strain. Troponin was mildly elevated. She denies having any chest pain or discomfort at this point, and she stated that the shortness of breath is a slightly better. From the cardiovascular standpoint of view, the patient can be discharged home on Lovenox and Coumadin Objective - Vital Signs Vital signs: Vital Signs Temp 98.2 F 01/14/17 08:00 Pulse 76 01/14/17 09:40 Resp 16 01/14/17 08:00 BP 120/53 01/14/17 08:00 Pulse Ox 99 01/14/17 09:26 Intake & Output 01/13/17 01/14/17 01/14/17 18:59 06:59 18:59 Intake Total 889.693 2425.145 Balance 712.492 3425.145 Weight 119.2 kg Intake: IV 750 0.9 @ KVO 240 Heparin Sodium,Porcine/ 510 D5w Pmx 25,000 unit In Dextrose/Water 1 500ml. bag @ 18 UNITS/KG/HR 38. 37 mls/hr IV .Q13H2M [facility] Rx#:[id number] Intake, IV Titration 500.000 348.145 Amount Heparin Sodium,Porcine/ 500.000 348.145 D5w Pmx 25,000 unit In Dextrose/Water 1 500ml. bag @ 18 UNITS/KG/HR 38. 37 mls/hr IV .Q13H2M [facility] Rx#:[id number] Oral 400 Other: Voiding Method Toilet Toilet Toilet # Voids 2 1 - Constitutional General appearance: Present: no acute distress - Respiratory Respiratory: bilateral: CTA - Cardiovascular Rhythm: regular Heart sounds: normal: S1, S2 - Labs CBC & Chem 7: 01/14/17 06:19 01/14/17 06:19 Labs: Abnormal Lab Results - Last 24 Hours (Table) 01/13/17 01/14/17 01/14/17 Range/Units 12:51 06:19 06:19 RBC 3.07 L (3.80-5.40) m/uL Hgb 8.4 L (11.4-16.0) gm/dL Hct 27.4 L (34.0-46.0) % MCHC 30.7 L (31.0-37.0) g/dL RDW 19.0 H (11.5-15.5) % PT (9.0-12.0) sec INR (<1.2) APTT 66.6 H (22.0-30.0) sec BUN 6 L (7-17) mg/dL Calcium 8.1 L (8.4-10.2) mg/dL 01/14/17 Range/Units 06:52 RBC (3.80-5.40) m/uL Hgb (11.4-16.0) gm/dL Hct (34.0-46.0) % MCHC (31.0-37.0) g/dL RDW (11.5-15.5) % PT 15.3 H (9.0-12.0) sec INR 1.6 H (<1.2) APTT 60.4 H (22.0-30.0) sec BUN (7-17) mg/dL Calcium (8.4-10.2) mg/dL Assessment and Plan Plan: This is a pleasant 46-year-old female patient with history of antiphospholipid antibody syndrome was supposed to be on Coumadin but she stopped taking the Coumadin presented to the hospital with bilateral DVT and PE. Currently the patient is on heparin IV. I am going to give her 10 mg of Coumadin today and check the INR tomorrow. Beside that she continues to be hemodynamically stable with marginal blood pressure. The patient can be discharged home.
[2017-01-14] MEDS: HEPARIN SODIUM,PORCINE/D5W PMX 25,000 UNIT in DEXTROSE/WATER 1 500ML.BAG IV SCH ×2 (10:38→21:26)
[2017-01-14] MEDS: MORPHINE SULFATE 4 MG/ML SYRINGE IV PRN ×2 (12:27→17:01)
--- NOTE | 2017-01-14 12:36 | P.PN ---
Subjective Principal diagnosis: Acute pulmonary embolism and DVT A 46-year-old female patient with known history of antiphospholipid syndrome, lupus anticoagulant will has been treated in the past for pulmonary embolism. The patient reports a previous history of DVT and pulmonary embolism that occurred approximately 9 years ago. She was treated with warfarin for total of 7 years and ultimately she quit the treatment approximately 3 years ago. Yesterday she presented to the hospital because of worsening shortness of breath. At the same time she was having some bloody mucus. She has noted limitation of exercise capacity. She claims that she was able to ride a bike and she was unable to do that yesterday. For that reason she came into the hospital on the CAT scan of the chest was done and the patient was found to have bilateral pulmonary embolism and she was referred to [facility]. She has minor troponin leak. Her troponins are 0.3 and 0.2 respectively. She has occasional PVCs on her EKG. Her echocardiogram shows an ejection fraction of 55-60%. There is some enlargement of the right ventricle and a PA pressure was estimated to be around 39 mmHg. She probably may have an underlying chronic pulmonary hypertension. The clot burden is not extensive based on the CT angios. The patient currently is on room air. No hemodynamic instability. No dyspnea at rest. Some exertional dyspnea is present. Legs are swollen chronically and Doppler of the lower extremity still pending for now. She has varicose veins in her legs pH is also history of fibromyalgia, bipolar disorder, borderline percent disorder, and obesity. She has undergone previous bariatric surgery. No recent surgery. No fall. No trauma. She is currently on IV heparin. On 01/12/2017 the patient is being seen in follow-up. The patient is doing well. No cough. No hemoptysis pH shortness of breath is improved. No pleurisy. She is having some pain in the right lower extremity VT essentially at the calf area and a Doppler will be done to make sure there is no evidence of pulmonary embolism. The patient on IV heparin. The patient was started on Coumadin. PT/INR is subtherapeutic at this point. No other significant events overnight. Hemoglobin stable at 9.1. There is been some drop in hemoglobin since the patient's admission and this is something to watch for. Platelet counts are also stable at 156. On 01/13/2017, patient has shortness of breath, no cough, no wheezing, no chest pain, no fever, no chills, no hemoptysis. Remains on heparin and now on Coumadin but remains subtherapeutic. Plan is to get Coumadin therapeutic and then she can be discharged home and to remain on Coumadin lifetime. On 01/14/2017, patient is doing well, relatively asymptomatic, remains on heparin , her Coumadin is subtherapeutic with INR of 1.6. Patient is still on heparin and plans are being made for possible discharge planning in the next 24 hours. Objective - Vital Signs Vital signs: Vital Signs Temp 98.2 F 01/14/17 08:00 Pulse 68 01/14/17 12:00 Resp 16 01/14/17 12:00 BP 132/69 01/14/17 12:00 Pulse Ox 97 01/14/17 12:00 Intake & Output 01/13/17 01/14/17 01/14/17 18:59 06:59 18:59 Intake Total 008.842 6422.145 1100 Balance 460.317 7025.145 1100 Weight 119.2 kg Intake: IV 750 0.9 @ KVO 240 Heparin Sodium,Porcine/ 510 D5w Pmx 25,000 unit In Dextrose/Water 1 500ml. bag @ 18 UNITS/KG/HR 38. 37 mls/hr IV .Q13H2M [facility] Rx#:[id number] Intake, IV Titration 500.000 348.145 500 Amount Heparin Sodium,Porcine/ 500.000 348.145 500 D5w Pmx 25,000 unit In Dextrose/Water 1 500ml. bag @ 18 UNITS/KG/HR 38. 37 mls/hr IV .Q13H2M [facility] Rx#:[id number] Oral 400 600 Other: Voiding Method Toilet Toilet Toilet # Voids 2 1 # Bowel Movements 0 - Exam Obese, calm and comfortable likely distress.Head exam was generally normal. There was no scleral icterus or corneal arcus. Mucous membranes were moist.Neck was supple and without jugular venous distension, thyromegaly, or carotid bruits. Carotids were easily palpable bilaterally. There was no adenopathy. Lung sounds are diminished bilaterally otherwise clear. There is no wheezes or rhonchi any crackles.Cardiac exam revealed the PMI to be normally situated and sized. The rhythm was regular and no extrasystoles were noted during several minutes of auscultation. The first and second heart sounds were normal and physiologic splitting of the second heart sound was noted. There were no murmurs , rubs, clicks, or gallops.Abdominal exam revealed normal bowel sounds. The abdomen was soft, non-tender, and without masses, organomegaly, or appreciable enlargement of the abdominal aorta. Extremities reveal trace edema and there is no cyanosis or clubbing at this point. There is varicose veins. No calf pain or tenderness. Neurologically the patient is awake and alert. - Labs CBC & Chem 7: 01/14/17 06:19 01/14/17 06:19 Labs: Abnormal Lab Results - Last 24 Hours (Table) 01/13/17 01/14/17 01/14/17 Range/Units 12:51 06:19 06:19 RBC 3.07 L (3.80-5.40) m/uL Hgb 8.4 L (11.4-16.0) gm/dL Hct 27.4 L (34.0-46.0) % MCHC 30.7 L (31.0-37.0) g/dL RDW 19.0 H (11.5-15.5) % PT (9.0-12.0) sec INR (<1.2) APTT 66.6 H (22.0-30.0) sec BUN 6 L (7-17) mg/dL Calcium 8.1 L (8.4-10.2) mg/dL 01/14/17 Range/Units 06:52 RBC (3.80-5.40) m/uL Hgb (11.4-16.0) gm/dL Hct (34.0-46.0) % MCHC (31.0-37.0) g/dL RDW (11.5-15.5) % PT 15.3 H (9.0-12.0) sec INR 1.6 H (<1.2) APTT 60.4 H (22.0-30.0) sec BUN (7-17) mg/dL Calcium (8.4-10.2) mg/dL Assessment and Plan Plan: 1 acute pulmonary embolism. There is a recurrent event knowing that the patient had previous DVT and pulmonary embolism approximately 9 years ago and she's been off anticoagulation for the past 2 years. There is an unprovoked event. There is underlying hypercoagulability. On 01/12/2013, the patient on IV heparin and the patient is also being integrated with warfarin. PT/INR is subtherapeutic. INR today's is 1.1. PTT is therapeutic at 47.6. We'll monitor the hemoglobin. We'll obtain a Doppler of the lower extremity. On 01/13/2017, PTT is 66.6, INR is 1.2. On 01/14/2017 INR is 1.6, PTT is therapeutic. 2 lupus anticoagulant and possible antiphospholipid syndrome 3 obesity with a previous Bariatric surgery and Ibis-en-Y gastric bypass 4 fibromyalgia 5 bipolar disorder 6 borderline personality disorder 7 bronchial asthma 8 pulmonary hypertension, partly chronic, probably further exacerbated by acute pulmonary event 9 troponin leak secondary to above Recommendation: Continue IV heparin, continue Coumadin, and was therapeutic, discharge the patient home and she is to remain on anticoagulation therapy lifetime. Time with Patient: Less than 30
--- NOTE | 2017-01-14 16:05 | P.PN ---
Subjective Date of service 01/14/2017. Personal being dictated for Dr. Lujan. Interval history: This is a 46-year-old female admitted with acute bilateral DVT with acute pulmonary embolism and multiple other medical issues. Maintained on heparin and Coumadin, INR currently 1.6. Denies chest pain, palpitations or increasing shortness of breath. States leg edema improving, softer. Ambulating to and from bathroom, tolerated exertion well. Objective - Vital Signs Vital signs: Vital Signs Temp 98.2 F 01/14/17 08:00 Pulse 68 01/14/17 14:48 Resp 16 01/14/17 14:48 BP 132/69 01/14/17 12:00 Pulse Ox 97 01/14/17 12:00 Intake & Output 01/13/17 01/14/17 01/14/17 18:59 06:59 18:59 Intake Total 410.360 0230.145 1100 Balance 636.547 0081.145 1100 Weight 119.2 kg Intake: IV 750 0.9 @ KVO 240 Heparin Sodium,Porcine/ 510 D5w Pmx 25,000 unit In Dextrose/Water 1 500ml. bag @ 18 UNITS/KG/HR 38. 37 mls/hr IV .Q13H2M [facility] Rx#:[id number] Intake, IV Titration 500.000 348.145 500 Amount Heparin Sodium,Porcine/ 500.000 348.145 500 D5w Pmx 25,000 unit In Dextrose/Water 1 500ml. bag @ 18 UNITS/KG/HR 38. 37 mls/hr IV .Q13H2M [facility] Rx#:[id number] Oral 400 600 Other: Voiding Method Toilet Toilet Toilet # Voids 2 1 # Bowel Movements 0 - Exam PHYSICAL EXAM: VITAL SIGNS: As above GENERAL: [Sitting up in bed, no acute distress] HEENT: [Pupils equal conjunctiva normal. Oral mucosa moist] NECK: [Supple, no JVD] RESPIRATORY EFFORT:[ Normal] LUNGS: [Bilateral bases diminished, no wheezes rhonchi or crackles] CARDIOVASCULAR[ regular S1 and S2, no murmurs rubs or gallops, decreasing edema] GI: [Abdomen soft, nontender, positive bowel sounds.] PSYCH: [Alert and oriented -3, mood and affect normal.] NEURO: No focal deficits - Labs CBC & Chem 7: 01/14/17 06:19 01/14/17 06:19 Labs: Abnormal Lab Results - Last 24 Hours (Table) 01/14/17 01/14/17 01/14/17 Range/Units 06:19 06:19 06:52 RBC 3.07 L (3.80-5.40) m/uL Hgb 8.4 L (11.4-16.0) gm/dL Hct 27.4 L (34.0-46.0) % MCHC 30.7 L (31.0-37.0) g/dL RDW 19.0 H (11.5-15.5) % PT 15.3 H (9.0-12.0) sec INR 1.6 H (<1.2) APTT 60.4 H (22.0-30.0) sec BUN 6 L (7-17) mg/dL Calcium 8.1 L (8.4-10.2) mg/dL Assessment and Plan Plan: 1. Acute bilateral DVT with acute PE. 2. [ Heparin monitoring]. 3. [ Coumadin monitoring]. 4. [ Lupus anticoagulant antiphospholipid syndrome]. 5. [ Chronic proximal asthma]. Plan: Continue on current medication regime ,monitoring and symptomatic treatment. Maintain anticoagulation with heparin and Coumadin. Coumadin 10 mg tonight . Daily PT/INR .Follow closely with pulmonary and hematology. Discharge planning in progress for potentially tomorrow. Further recommendations to follow. The impression and plan of care has been dictated as directed. : I performed a H&P examination of this patient and discussed the same with the dictator. I agree with the dictator's note. Any additional findings/opinions/ etc. will be noted.
[2017-01-14] MEDS ORDERED: WARFARIN 2 MG TAB PO ONE (20:15)
[2017-01-14] MEDS: TEMAZEPAM 15 MG CAP PO PRN (20:55)
[2017-01-15] MEDS: MORPHINE SULFATE 4 MG/ML SYRINGE IVP PRN ×4 (01:08→14:44)
[2017-01-15 06:38] LABS: INR 1.8 (<1.2); Partial Thromboplastin Time 72.4 sec (22.0-30.0); Prothrombin Time 17.2 sec (9.0-12.0)
[2017-01-15 06:56] LABS: Anisocytosis Slight; CH 27.6; HCT 27.4 % (34.0-46.0); HGB 8.5 gm/dL (11.4-16.0); Hypochromasia Moderate; MCH 27.7 pg (25.0-35.0); MCHC 30.9 g/dL (31.0-37.0); MCV 89.7 fL (80.0-100.0); Mean Platelet Volume 9.5; RBC 3.06 m/uL (3.80-5.40); RDW 19.5 % (11.5-15.5); WBC 4.1 k/uL (3.8-10.6); WBC (Perox) 4.03
[2017-01-15 07:04] LABS: Anion Gap 6 mmol/L; Blood Urea Nitrogen 7 mg/dL (7-17); Calcium 8.7 mg/dL (8.4-10.2); Carbon Dioxide 26 mmol/L (22-30); Chloride 106 mmol/L (98-107); Glucose 100 mg/dL (74-99); Non-African American GFR(MDRD) >60 (>60 ml/min/1.73 sqM); Potassium 4.4 mmol/L (3.5-5.1); Sodium 138 mmol/L (137-145)
[2017-01-15] MEDS: LEVALBUTEROL NEB 1.25 MG/3 ML AMP INHALATION SCH ×2 (07:18→12:49)
[2017-01-15 07:23] LABS: Add Differential Manual Differential
[2017-01-15 07:27] LABS: Nucleated Red Blood Cells 0 /100 WBC (0-0); Total Cells Counted 100
[2017-01-15 07:29] LABS: Large Platelets Present; Manual Review Performed
[2017-01-15] MEDS: DOCUSATE 100 MG CAP PO SCH (09:09)
[2017-01-15] MEDS: SENNOSIDES 8.6 MG TAB PO SCH (09:09)
[2017-01-15] MEDS: GABAPENTIN 400 MG CAP PO SCH (09:09)
[2017-01-15] MEDS: LURASIDONE 40 MG TAB PO SCH (09:09)
[2017-01-15] MEDS: ASPIRIN 325 MG TAB PO SCH (09:09)
[2017-01-15] MEDS ORDERED: WARFARIN 5 MG TAB PO ONE ×2 (09:41→18:00)
[2017-01-15 10:58] VITALS: RESP 18
--- NOTE | 2017-01-15 11:54 | P.PN ---
Subjective Principal diagnosis: Acute pulmonary embolism and DVT A 46-year-old female patient with known history of antiphospholipid syndrome, lupus anticoagulant will has been treated in the past for pulmonary embolism. The patient reports a previous history of DVT and pulmonary embolism that occurred approximately 9 years ago. She was treated with warfarin for total of 7 years and ultimately she quit the treatment approximately 3 years ago. Yesterday she presented to the hospital because of worsening shortness of breath. At the same time she was having some bloody mucus. She has noted limitation of exercise capacity. She claims that she was able to ride a bike and she was unable to do that yesterday. For that reason she came into the hospital on the CAT scan of the chest was done and the patient was found to have bilateral pulmonary embolism and she was referred to [facility]. She has minor troponin leak. Her troponins are 0.3 and 0.2 respectively. She has occasional PVCs on her EKG. Her echocardiogram shows an ejection fraction of 55-60%. There is some enlargement of the right ventricle and a PA pressure was estimated to be around 39 mmHg. She probably may have an underlying chronic pulmonary hypertension. The clot burden is not extensive based on the CT angios. The patient currently is on room air. No hemodynamic instability. No dyspnea at rest. Some exertional dyspnea is present. Legs are swollen chronically and Doppler of the lower extremity still pending for now. She has varicose veins in her legs pH is also history of fibromyalgia, bipolar disorder, borderline percent disorder, and obesity. She has undergone previous bariatric surgery. No recent surgery. No fall. No trauma. She is currently on IV heparin. On 01/12/2017 the patient is being seen in follow-up. The patient is doing well. No cough. No hemoptysis pH shortness of breath is improved. No pleurisy. She is having some pain in the right lower extremity [place] essentially at the calf area and a Doppler will be done to make sure there is no evidence of pulmonary embolism. The patient on IV heparin. The patient was started on Coumadin. PT/INR is subtherapeutic at this point. No other significant events overnight. Hemoglobin stable at 9.1. There is been some drop in hemoglobin since the patient's admission and this is something to watch for. Platelet counts are also stable at 156. On 01/13/2017, patient has shortness of breath, no cough, no wheezing, no chest pain, no fever, no chills, no hemoptysis. Remains on heparin and now on Coumadin but remains subtherapeutic. Plan is to get Coumadin therapeutic and then she can be discharged home and to remain on Coumadin lifetime. On 01/14/2017, patient is doing well, relatively asymptomatic, remains on heparin , her Coumadin is subtherapeutic with INR of 1.6. Patient is still on heparin and plans are being made for possible discharge planning in the next 24 hours. Reevaluated today on 01/15/2017, asymptomatic, no chest pain no shortness of breath no cough no wheezing no hemoptysis. Her INR today is 1.8, hence I feel the patient could receive a dose of Lovenox, may sure that she remains on Coumadin and to receive her dose tonight, patient could be discharged home today and she'll be cleared from the pulmonary perspective. Objective - Vital Signs Vital signs: Vital Signs Temp 98.0 F 01/15/17 08:00 Pulse 72 01/15/17 08:00 Resp 18 01/15/17 08:00 BP 123/66 01/15/17 08:00 Pulse Ox 96 01/15/17 08:00 Intake & Output 01/14/17 01/15/17 01/15/17 18:59 06:59 18:59 Intake Total 2420 1000.404 240 Output Total 1 Balance 2420 999.404 240 Weight 119 kg Intake: IV 600 540 0.9 @ KVO 200 180 Heparin Sodium,Porcine/ 400 360 D5w Pmx 25,000 unit In Dextrose/Water 1 500ml. bag @ 18 UNITS/KG/HR 38. 37 mls/hr IV .Q13H2M [facility]AI Rx#:[id number] Intake, IV Titration 500 460.404 Amount Heparin Sodium,Porcine/ 500 460.404 D5w Pmx 25,000 unit In Dextrose/Water 1 500ml. bag @ 18 UNITS/KG/HR 38. 37 mls/hr IV .Q13H2M SARAI Rx#:[id number] Oral 1320 240 Output: Urine/Stool Mix 1 Other: Voiding Method Toilet # Bowel Movements 0 - Exam Obese, calm and comfortable likely distress.Head exam was generally normal. There was no scleral icterus or corneal arcus. Mucous membranes were moist.Neck was supple and without jugular venous distension, thyromegaly, or carotid bruits. Carotids were easily palpable bilaterally. There was no adenopathy. Lung sounds are diminished bilaterally otherwise clear. There is no wheezes or rhonchi any crackles.Cardiac exam revealed the PMI to be normally situated and sized. The rhythm was regular and no extrasystoles were noted during several minutes of auscultation. The first and second heart sounds were normal and physiologic splitting of the second heart sound was noted. There were no murmurs , rubs, clicks, or gallops.Abdominal exam revealed normal bowel sounds. The abdomen was soft, non-tender, and without masses, organomegaly, or appreciable enlargement of the abdominal aorta. Extremities reveal trace edema and there is no cyanosis or clubbing at this point. There is varicose veins. No calf pain or tenderness. Neurologically the patient is awake and alert. - Labs CBC & Chem 7: 01/15/17 06:01 01/15/17 06:01 Labs: Abnormal Lab Results - Last 24 Hours (Table) 01/15/17 01/15/17 01/15/17 Range/Units 06:01 06:01 06:01 RBC 3.06 L (3.80-5.40) m/uL Hgb 8.5 L (11.4-16.0) gm/dL Hct 27.4 L (34.0-46.0) % MCHC 30.9 L (31.0-37.0) g/dL RDW 19.5 H (11.5-15.5) % PT 17.2 H (9.0-12.0) sec INR 1.8 H (<1.2) APTT 72.4 H (22.0-30.0) sec Glucose 100 H (74-99) mg/dL Assessment and Plan Plan: 1 acute pulmonary embolism. There is a recurrent event knowing that the patient had previous DVT and pulmonary embolism approximately 9 years ago and she's been off anticoagulation for the past 2 years. There is an unprovoked event. There is underlying hypercoagulability. On 01/12/2013, the patient on IV heparin and the patient is also being integrated with warfarin. PT/INR is subtherapeutic. INR today's is 1.1. PTT is therapeutic at 47.6. We'll monitor the hemoglobin. We'll obtain a Doppler of the lower extremity. On 01/13/2017, PTT is 66.6, INR is 1.2. On 01/14/2017 INR is 1.6, PTT is therapeutic. On 01/15/2017 INR is 1.8 2 lupus anticoagulant and possible antiphospholipid syndrome 3 obesity with a previous Bariatric surgery and Ibis-en-Y gastric bypass 4 fibromyalgia 5 bipolar disorder 6 borderline personality disorder 7 bronchial asthma 8 pulmonary hypertension, partly chronic, probably further exacerbated by acute pulmonary event 9 troponin leak secondary to above Recommendation: Suggest discharge planning today and follow-up on outpatient basis. Patient could receive a dose of Lovenox prior to discharge, make sure she remains on Coumadin, and follow-up on outpatient basis. Time with Patient: Less than 30
--- NOTE | 2017-01-15 12:01 | P.PN ---
Subjective Principal diagnosis: PE This is a pleasant 46-year-old female with a prior history of antiphospholipid antibody syndrome who quit taking her Coumadin about a year or year and a half ago presented to [facility] with complaints of shortness of breath, bilateral leg pain generally not feeling well and near syncope ongoing for about 3 days. The Computed tomography scan found patient to have a PE and venous Doppler was positive for DVTs bilaterally. Echocardiogram was done that showed an ejection fraction of 55-60% with a severely enlarged RV. EKG did show signs of strain. Troponin was mildly elevated. She denies having any chest pain or discomfort at this point, and she stated that the shortness of breath is a slightly better. From the cardiovascular standpoint of view, the patient can be discharged home on Lovenox and Coumadin Objective - Vital Signs Vital signs: Vital Signs Temp 98.0 F 01/15/17 08:00 Pulse 72 01/15/17 08:00 Resp 18 01/15/17 08:00 BP 123/66 01/15/17 08:00 Pulse Ox 96 01/15/17 08:00 Intake & Output 01/14/17 01/15/17 01/15/17 18:59 06:59 18:59 Intake Total 2420 1000.404 240 Output Total 1 Balance 2420 999.404 240 Weight 119 kg Intake: IV 600 540 0.9 @ KVO 200 180 Heparin Sodium,Porcine/ 400 360 D5w Pmx 25,000 unit In Dextrose/Water 1 500ml. bag @ 18 UNITS/KG/HR 38. 37 mls/hr IV .Q13H2M [facility]AI Rx#:[id number] Intake, IV Titration 500 460.404 Amount Heparin Sodium,Porcine/ 500 460.404 D5w Pmx 25,000 unit In Dextrose/Water 1 500ml. bag @ 18 UNITS/KG/HR 38. 37 mls/hr IV .Q13H2M [facility]AI Rx#:[id number] Oral 1320 240 Output: Urine/Stool Mix 1 Other: Voiding Method Toilet # Bowel Movements 0 - Constitutional General appearance: Present: no acute distress - Respiratory Respiratory: bilateral: CTA - Cardiovascular Rhythm: regular Heart sounds: normal: S1, S2 - Labs CBC & Chem 7: 01/15/17 06:01 01/15/17 06:01 Labs: Abnormal Lab Results - Last 24 Hours (Table) 01/15/17 01/15/17 01/15/17 Range/Units 06:01 06:01 06:01 RBC 3.06 L (3.80-5.40) m/uL Hgb 8.5 L (11.4-16.0) gm/dL Hct 27.4 L (34.0-46.0) % MCHC 30.9 L (31.0-37.0) g/dL RDW 19.5 H (11.5-15.5) % PT 17.2 H (9.0-12.0) sec INR 1.8 H (<1.2) APTT 72.4 H (22.0-30.0) sec Glucose 100 H (74-99) mg/dL Assessment and Plan Plan: This is a pleasant 46-year-old female patient with history of antiphospholipid antibody syndrome was supposed to be on Coumadin but she stopped taking the Coumadin presented to the hospital with bilateral DVT and PE. Currently the patient is on heparin IV. I am going to give her 10 mg of Coumadin today and check the INR tomorrow. Beside that she continues to be hemodynamically stable with marginal blood pressure. The patient can be discharged home.
[2017-01-15 13:02] VITALS: BP 137/63; PULSE 72; TEMP 97.5
--- NOTE | 2017-01-17 18:49 | DS ---
FINAL DIAGNOSES: 1. Acute bilateral deep venous thrombosis with acute pulmonary embolism. 2. Heparin monitoring. 3. Coumadin monitoring. 4. Lupus anticoagulant. Antiphosid, antilipid antibody syndrome. 5. Chronic paroxysmal asthma. DISCHARGE DISPOSITION: The patient is being discharged in stable condition with guarded prognosis. Total time taken 35 minutes. HISTORY OF PRESENT ILLNESS: This 46-year-old woman was admitted to the hospital with significant DVT, as well as pulmonary embolism, treated with heparin. The patient seen by multiple consultants including Dr. Machado and Dr. Lamb and the patient is being discharged in stable condition with guarded prognosis. The patient improved significantly. The patient is keen on going home at this time. The patient was noncompliant with medications previously but I recommended the patient to follow up with multiple consultants closely. On exam, vital signs are stable. CARDIOVASCULAR: S1, S2 muffled. Abdomen soft. Nervous system: No focal deficits. DISCHARGE ADVICE AND MEDICATIONS: 1. Diet is cardiac. 2. Activity limited until follow-up. 3. Follow-up with Dr. Blue in two to three days. 4. Follow-up with Dr. Machado and Dr. Perez as advised. 5. Colace 100 mg po b.i.d. 6. Lovenox 120 mg subcu b.i.d. until INR more than 2. 7. Gabapentin 800 mg t.i.d. 8. Latuda 120 mg po daily. 9. Prilosec 20 mg daily. 10. Coumadin 8 mg po q.h.s. Once again, the patient will be discharged in stable condition with guarded prognosis. MTDKennedy
== END 2017-01-15 15:03 | disposition home health service (06) | DRG 299 ==
LOC: EC 16:24 → 6SEL 16:33 → UNDODISIN 01-15 12:43
PROVIDERS: ADMIT Hospitalist; ATTEND Hospitalist
DX: I82.403 Acute embolism and thrombosis of unspecified deep veins of lower extremity, bilateral (principal); I26.99 Other pulmonary embolism without acute cor pulmonale; D68.62 Lupus anticoagulant syndrome; D68.59 Other primary thrombophilia; I27.2 Other secondary pulmonary hypertension; M32.9 Systemic lupus erythematosus, unspecified; I83.90 Asymptomatic varicose veins of unspecified lower extremity; E66.9 Obesity, unspecified; J45.909 Unspecified asthma, uncomplicated; M79.7 Fibromyalgia; I25.2 Old myocardial infarction; F31.9 Bipolar disorder, unspecified; F60.3 Borderline personality disorder; G43.909 Migraine, unspecified, not intractable, without status migrainosus; G47.00 Insomnia, unspecified; L30.9 Dermatitis, unspecified; I49.3 Ventricular premature depolarization; Z79.899 Other long term (current) drug therapy; Z91.19 Patient's noncompliance with other medical treatment and regimen; Z98.84 Bariatric surgery status; Z87.891 Personal history of nicotine dependence; Z90.710 Acquired absence of both cervix and uterus; Z86.718 Personal history of other venous thrombosis and embolism; Z86.711 Personal history of pulmonary embolism; Z91.419 Personal history of unspecified adult abuse; Z88.5 Allergy status to narcotic agent; Z88.8 Allergy status to other drugs, medicaments and biological substances; Z88.6 Allergy status to analgesic agent; Z88.1 Allergy status to other antibiotic agents; Z91.040 Latex allergy status
CPT/HCPCS: 71010; 80048; 80061; 81001; 82550; 82553; 83735; 84484; 85025; 85027; 85379; 85610; 85730; 93005; 93306; 93970; 94640; 94760; 96360; 96361; 96365; 96374; 96375; 99285

== ENCOUNTER → 2017-02-11 | Outpatient (CLI) | payer MEDICARE, OTHER ==
[2017-02-12 21:51] LABS: ANA w/Reflex to Titer NEGATIVE (NEGATIVE)
[2017-02-13 12:06] LABS: Hexagonal Phase Neutralization Positive (Negative)
[2017-02-13 15:21] LABS: Mis test requested (Blood) B-Glycoprotein Abs
== END | disposition home or self-care (01) ==
LOC: LABWHC1 17:31
PROVIDERS: ATTEND Internal Medicine Hematology & Oncology
DX: D68.312 Antiphospholipid antibody with hemorrhagic disorder (principal); I26.99 Other pulmonary embolism without acute cor pulmonale; Z71.3 Dietary counseling and surveillance; I82.5Z9 Chronic embolism and thrombosis of unspecified deep veins of unspecified distal lower extremity
CPT/HCPCS: 36415; 81240; 81241; 83090; 85613; 85730; 86038; 86146; 86147; 86148

== ENCOUNTER 2020-12-06 07:50 | Observation (INO) | payer MEDICARE, OTHER ==
[2020-11-30 09:10] VITALS: BMI 35.6
[~2020-12-06 07:50] MED LIST: ACETAMINOPHEN TAB 500 MG TAB PO PRN; CLINDAMYCIN 900 MG in DEXTROSE 5% IN WATER 50 ML IVPB PRN; DEXAMETHASONE SOD PHOSPHATE 4 MG/ML 1 ML VIAL IV ONE; HEPARIN SODIUM,PORCINE/PF 5,000 UNIT/0.5 ML SYRINGE SQ PRN; LACTATED RINGERS 1,000 ML IV SCH; LIDOCAINE 1% (10MG/ML) FOR IV START INTRADERMA PRN; ONDANSETRON 4 MG/2 ML VIAL IVP ONE
--- NOTE | 2020-12-06 08:03 | P.GSHP ---
History of Present Illness H&P Date: 12/06/20 Chief Complaint: Panniculus This a 50-year-old female who presents today for panniculectomy. Patient had issues with obesity. She has had chronic issues of skin irritations at her panniculus. She is aware that this is not a cosmetic procedure or procedure remove redundant skin and fat. Past Medical History Past Medical History: Asthma, Deep Vein Thrombosis (DVT), Fibromyalgia, Myocardial Infarction (DC), Osteoarthritis (OA), Pneumonia, Pulmonary Embolus (PE), Skin Disorder Additional Past Medical History / Comment(s): Antiphospholipid syndrome, lupus anticoagulant, migraines, insomnia, history of head injury , DVT and pulmonary embolism approximately 9 years ago, varicose veins, eczema, Last Myocardial Infarction Date:: approx 2007 History of Any Multi-Drug Resistant Organisms: MRSA Date of last positivie culture/infection: 2004 MDRO Source:: arm Past Surgical History: Adenoidectomy, Bariatric Surgery, Bowel Resection, Hysterectomy, Orthopedic Surgery, Tonsillectomy Additional Past Surgical History / Comment(s): Bariatric surgery with a betty en y, bowel reconstruction from herniated bowel, vaginal reconstruction, rt leg- fx/screws, bladder suspension surgery, surgery on rt thumb Past Anesthesia/Blood Transfusion Reactions: Motion Sickness Additional Past Anesthesia/Blood Transfusion Reaction / Comment(s): stated "had a difficult time getting her put under general for thumb surgery" Smoking Status: Former smoker - Past Family History Mother Family Medical History: Blood Disorder Additional Family Medical History / Comment(s): blood clot in her hand Father Family Medical History: Cancer Additional Family Medical History / Comment(s): . Medications and Allergies Home Medications Medication Instructions Recorded Confirmed Type Albuterol Inhaler [Ventolin Hfa 1 puff INHALATION BID 11/30/20 11/30/20 History Inhaler] Apixaban [Eliquis] 2.5 mg PO BID 11/30/20 11/30/20 History Cyanocobalamin (Vitamin B-12) 3,000 mcg PO DAILY 11/30/20 11/30/20 History [Vitamin B-12] Escitalopram [Lexapro] 20 mg PO DAILY 11/30/20 11/30/20 History Folic Acid 1 mg PO DAILY 11/30/20 11/30/20 History OLANZapine [ZyPREXA] 10 mg PO HS 11/30/20 11/30/20 History busPIRone HCL 15 mg PO TID 11/30/20 11/30/20 History tiZANidine HCL [Zanaflex] 4 mg PO TID 11/30/20 11/30/20 History traZODone HCL 100 - 200 mg PO HS PRN 11/30/20 11/30/20 History Allergies Allergy/AdvReac Type Severity Reaction Status Date / Time acetaminophen [From [place]] AdvReac Unknown Verified 11/30/20 08:54 cephalexin monohydrate AdvReac Unknown Verified 11/30/20 08:54 [From Keflex] hydrocodone [From [place]] AdvReac Unknown Verified 11/30/20 08:54 hydromorphone HCl AdvReac Unknown Verified 11/30/20 08:54 [From Dilaudid] latex AdvReac Unknown Verified 11/30/20 08:54 promethazine [From Phenergan] AdvReac Unknown Verified 11/30/20 08:54 Surgical - Exam - General well developed, well nourished, no distress - Eyes PERRL - ENT normal pinna - Neck no masses - Respiratory normal expansion - Cardiovascular Rhythm: regular - Abdomen Well-formed panniculus with evidence of chronic skin irritation Abdomen: soft, non tender Assessment and Plan Assessment: Panniculus. We'll perform panniculectomy.
[2020-12-06] MEDS ORDERED: SCOPOLAMINE 1.5MG/72HR PATCH TRANSDERM ONE (09:00)
[2020-12-06] MEDS ORDERED: LIDOCAINE 1% INJ 10MG/ML (20 ML MDV) ONE ×2 (09:19→11:37)
[2020-12-06] MEDS ORDERED: MIDAZOLAM 2 MG/2 ML VIAL IVP ONE ×2 (09:25→11:18)
[2020-12-06 10:22] LABS: INR 0.9 (<1.2)
[2020-12-06 10:28] LABS: ALT 60 U/L (4-34); AST 51 U/L (14-36); African American GFR (CKD) >90 (>60 ml/min/1.73 sqM); Albumin 4.8 g/dL (3.5-5.0); Alkaline Phosphatase 116 U/L (38-126); Anion Gap 9 mmol/L; Blood Urea Nitrogen 19 mg/dL (7-17); Calcium 9.8 mg/dL (8.4-10.2); Carbon Dioxide 26 mmol/L (22-30); Chloride 101 mmol/L (98-107); Glucose 105 mg/dL (74-99); Non-African American GFR(CKD) >90 (>60 ml/min/1.73 sqM); Potassium 4.6 mmol/L (3.5-5.1); Sodium 136 mmol/L (137-145); Total Bilirubin 0.5 mg/dL (0.2-1.3); Total Protein 7.6 g/dL (6.3-8.2)
[2020-12-06 10:49] LABS: Anisocytosis Slight; Basophils # (A) 0.1 k/uL (0-0.2); Basophils % (A) 1 %; Eosinophils # (A) 0.1 k/uL (0-0.7); Eosinophils % (A) 1 %; HCT 35.5 % (34.0-46.0); HGB 11.3 gm/dL (11.4-16.0); Hypochromasia Moderate; Lymphocytes # (A) 1.8 k/uL (1.0-4.8); Lymphocytes % (A) 32 %; MCH 25.8 pg (25.0-35.0); MCHC 31.8 g/dL (31.0-37.0); MCV 81.2 fL (80.0-100.0); Mean Platelet Volume 8.2; Microcytosis Slight; Monocytes # (A) 0.3 k/uL (0-1.0); Monocytes % (A) 6 %; Neutrophils # (A) 3.2 k/uL (1.3-7.7); Neutrophils % (A) 58 %; Platelet Count 322 k/uL (150-450); Poikilocytosis Slight; RBC 4.37 m/uL (3.80-5.40); RDW 17.5 % (11.5-15.5); WBC 5.6 k/uL (3.8-10.6)
[2020-12-06] MEDS ORDERED: ROCURONIUM 10 MG/ML (5 ML VIAL) IV ONE (11:37)
[2020-12-06] MEDS ORDERED: MIDAZOLAM 2 MG/2 ML VIAL ONE (11:37)
[2020-12-06] MEDS ORDERED: KETAMINE 10 MG/ML 20 ML VIAL ONE (11:37)
[2020-12-06] MEDS ORDERED: NEOSTIGMINE 1 MG/ML 10 ML VIAL ONE (11:37)
[2020-12-06] MEDS ORDERED: PROPOFOL 10 MG/ML 20 ML VIAL IV ONE (11:37)
[2020-12-06] MEDS ORDERED: ROPIVACAINE 5 MG/ML 30 ML VIAL ONE (11:37)
[2020-12-06] MEDS ORDERED: fentaNYL (PF) 50 MCG/ML 2 ML AMP ONE (11:37)
[2020-12-06] MEDS ORDERED: SUCCINYLCHOLINE CHLORIDE 100 MG/5 ML SYR IV ONE (11:37)
[2020-12-06] MEDS ORDERED: GLYCOPYRROLATE 0.2 MG/ML 2 ML VIAL ONE (11:37)
[2020-12-06] MEDS ORDERED: LIDOCAINE 1%-EPI 1:100,000 20 ML VIAL ONE (11:37)
[2020-12-06] MEDS ORDERED: LACTATED RINGERS 1,000 ML IV ONE ×3 (12:30→13:39)
--- NOTE | 2020-12-06 13:38 | P.OP ---
Date of Procedure: 12/06/20 Preoperative Diagnosis: Panniculus Postoperative Diagnosis: Panniculus Procedure(s) Performed: Panniculectomy Anesthesia: CAROLYN Surgeon: Yung Huertas Estimated Blood Loss (ml): 50 Pathology: none sent Condition: stable Disposition: PACU Description of Procedure: PROCEDURE: The patient was placed on the operating table in supine position and received general anesthetic. The abdomen was prepped and draped in the usual sterile fashion. The lower skin incision was then made after the skin was marked with a marker. The incision ran from the pubic area to the level of the anterosuperior iliac spine. Using blunt and sharp dissection and electrocautery the subcutaneous tissues were then dissected down to the level of the fascia external oblique. N Following this the dissection was then made from the inferior pannicular incision cephalad. The xiphoid and costal margins were the limits of the dissection. Several small perforating vessels were ligated and cautery was used to maintain hemostasis. Once the dissection was performed the panniculus was then divided in the midline from the level of the umbilicus towards the pubic area. Downward and lateral traction was then placed on the abdominal wall and the skin was suitably marked for transection of the umbil icus. The skin was then incised and the Bovie was used for dissection of the pannicular flap. There was an incisional hernia noted along the low midline scar. The incisional hernia was closed with #1 . The abdominal wall plication was PERFORMED with #16. Next, 2 10-Sinhala NOBLE drains were placed in the wound and brought out through separate stab incisions at the level of the pubic area. The drains were secured to the skin using 3-0 nylon. After the NOBLE drains were secured, Eusebia's fascia was closed with interrupted 0 Vicryl sutures and then the skin was closed with running 3-0 Monocryl sutures. Prior to closure of the abdominal wall care was taken to ensure that both the abdominal wall and the abdominal wall flap were hemostatic. At this point the drains were placed to suction. The abdomen was cleaned and then sterile tape was placed over top of the incisions. Abdominal binder was then placed. The patient tolerated the procedure well. The patient was sent to recovery room in stable condition.
[2020-12-06] MEDS ORDERED: traMADol 50 MG TAB PO PRN (13:39)
[2020-12-06] MEDS ORDERED: HYDROcodone/APAP 5-325MG 1 EACH TAB PO PRN (13:39)
[2020-12-06] MEDS ORDERED: HYDROmorphone 0.5 MG/0.5 ML SYRINGE IVP PRN (13:39)
[2020-12-06] MEDS ORDERED: NALOXONE 0.4 MG/ML 1 ML VIAL IV PRN (13:39)
[2020-12-06] MEDS ORDERED: ONDANSETRON 4 MG/2 ML VIAL IVP PRN (13:39)
[2020-12-06] MEDS ORDERED: ONDANSETRON 4 MG/2 ML VIAL IVP ONE (13:46)
--- NOTE | 2020-12-06 13:51 | P.ANPRN ---
Procedure Note - Anesthesia - Nerve Block Performed Bilateral Erector Spinae Single Time Out Performed: Yes Date of Procedure: 12/06/20 Procedure Start Time: : Procedure Stop Time: Location of Patient: PreOp Indication: Acute Post-Operative Pain, Requested by Surgeon Sedation Type: Sedate with meaningful contact maintained Preparation: Sterile Prep Position: Prone Needle Types: Pajunk Needle Gauge: 21 Ultrasound used to visualize needle placement: Yes Ultrasound used to observe medication spread: Yes Blood Aspirated: No Pain Paresthesia on Injection Noted: No Resistance on Injection: Normal Image Stored and Saved: Yes Events: Uneventful and Well Tolerated (ropi .5% 15cc plus xylo 1% with epi 15cc bilaterally at L1)
[2020-12-06] MEDS: MORPHINE SULFATE 4 MG/ML SYRINGE IVP PRN ×2 (16:23→20:22)
[2020-12-06] MEDS ORDERED: traZODone HCL 100 MG TAB PO PRN (17:00)
[2020-12-06] MEDS ORDERED: bisacodyL 5 MG TABLET.DR PO PRN (17:05)
[2020-12-06] MEDS: tiZANidine 4 MG TAB PO SCH ×2 (17:49→20:21)
[2020-12-06] MEDS: busPIRone HCl 5 MG TAB PO SCH ×2 (17:49→20:27)
[2020-12-06] MEDS: FOLIC ACID 1 MG TAB PO SCH (17:50)
[2020-12-06] MEDS: ESCITALOPRAM 20 MG TAB PO SCH (17:50)
[2020-12-06] MEDS: diazePAM 5 MG TAB PO PRN (19:08)
[2020-12-06] MEDS: OLANZapine 10 MG TAB PO SCH (20:21)
[2020-12-06] MEDS: ACETAMINOPHEN TAB 325 MG TAB PO PRN (20:21)
[2020-12-06] MEDS: ALBUTEROL NEBULIZED 2.5 MG/3 ML INHALATION SCH (20:28)
--- NOTE | 2020-12-06 21:11 | P.CONS ---
History of Present Illness - Reason for Consult Consult date: 12/06/20 Medical management Requesting physician: Yung Huertas - Chief Complaint Panniculectomy - History of Present Illness Consultation: This is a pleasant 50-year-old patient, who follows with Dr. Albert. Chronic stable medical conditions include fibromyalgia, history of DVT PE, antiphospholipid syndrome with lupus anticoagulant, chronic insomnia, history of an injury varicose veins. Patient's has a history of Betty-en-Y bariatric surgery. Patient stopped smoking about a month ago in preparation for the surgery. Patient has undergone panniculectomy. Postprocedure patient has 2 NOBLE drain. Some pain at the operative site. No nausea vomiting. Mother at the bedside. Breathing is stable. No chest pain. Review of systems: GEN.: Tired EYES: None HEENT: None NECK: None RESPIRATORY: None CARDIOVASCULAR: None GASTROINTESTINAL: None GENITOURINARY: None MUSCULOSKELETAL: Some chronic pain in the joints LYMPHATICS: None HEMATOLOGICAL: None PSYCHIATRY: Anxious NEUROLOGICAL: None Past medical history to include: Asthma, DVT, fibromyalgia, arthritis, PE, antiphospholipid syndrome, lupus anticoagulant, migraine, insomnia, history of energy, varicose veins, eczema, bariatric surgery be Betty-en-Y bypass, bipolar Social history: Patient smoked about half a pack a day closed to 40 years. Stopped about a month ago. Marijuana occasionally. Alcohol occasionally. Family history: *Clotting Disorder Physical examination: VITAL SIGNS: 98.2, 83, 18, 131/84, 96% on 2 L GENERAL: BMI 38.6, reclining in bed, awake. EYES: Pupils equal. Conjunctiva normal. HEENT: External appearance of nose and ears normal, oral cavity grossly normal. NECK: JVD not raised; masses not palpable. HEART: First and second heart sounds are normal; no edema. LUNGS: Respiratory rate normal; decreased breath sounds. ABDOMEN: Soft, tender, binder in place, 2 NOBLE drain with serosanguineous discharge, liver spleen not palpable, no masses palpable. PSYCH: Alert and oriented x3; mood and affect normal. NEUROLOGICAL: Cranial nerves grossly intact; no facial asymmetry, power and sensation grossly intact. LYMPHATICS: No lymph nodes palpable in the axilla and neck INVESTIGATIONS, reviewed in the clinical context: WBC 5.6 hemoglobin 11.3 platelets 322 potassium 4.6 creatinine 0.41 Assessment and plan: -Status post panniculectomy -COPD in a previous smoker Ventolin when necessary -Chronic DVT and PE. Resume eliseo and mario with Dr. Huertas -Antiphospholipid syndrome and lupus anticoagulant with DVTs Anticoagulation -Chronic idiopathic insomnia On trazodone -Obesity BMI 38.6 History of Betty-en-Y Y gastric bypass surgery -Bipolar disorder Continue Lexapro, BuSpar Home medications to be continued. Care was discussed with the patient and mother the bedside. Questions answered. Thank you Dr. Huertas Past Medical History Past Medical History: Asthma, Deep Vein Thrombosis (DVT), Fibromyalgia, Myocardial Infarction (SC), Osteoarthritis (OA), Pneumonia, Pulmonary Embolus (PE), Skin Disorder Additional Past Medical History / Comment(s): Antiphospholipid syndrome, lupus anticoagulant, migraines, insomnia, history of head injury , DVT and pulmonary embolism approximately 9 years ago, varicose veins, eczema, Last Myocardial Infarction Date:: 2007 History of Any Multi-Drug Resistant Organisms: MRSA Year Discovered:: 2004 MDRO Source:: arm Past Surgical History: Adenoidectomy, Bariatric Surgery, Bowel Resection, Hysterectomy, Orthopedic Surgery, Tonsillectomy Additional Past Surgical History / Comment(s): Bariatric surgery with a betty en y, bowel reconstruction from herniated bowel, vaginal reconstruction, rt leg- fx/screws, bladder suspension surgery, surgery on rt thumb, paniculectomy Past Anesthesia/Blood Transfusion Reactions: Motion Sickness Additional Past Anesthesia/Blood Transfusion Reaction / Comm: stated "had a difficult time getting her put under general for thumb surgery" Past Psychological History: Anxiety, Bipolar, Depression Additional Psychological History / Comment(s): "boarderline personality disorde r" Smoking Status: Former smoker Past Alcohol Use History: Occasional Additional Past Alcohol Use History / Comment(s): started smoking at age 9 , quit smoking 2 months ago, Past Drug Use History: Marijuana Additional Drug Use History / Comment(s): occ use - Past Family History Mother Family Medical History: Blood Disorder Additional Family Medical History / Comment(s): blood clot in her hand Father Family Medical History: Cancer Additional Family Medical History / Comment(s): . Medications and Allergies Home Medications Medication Instructions Recorded Confirmed Type Albuterol Inhaler [Ventolin Hfa 1 puff INHALATION BID 11/30/20 11/30/20 History Inhaler] Apixaban [Eliquis] 2.5 mg PO BID 11/30/20 12/06/20 History Cyanocobalamin (Vitamin B-12) 3,000 mcg PO DAILY 11/30/20 12/06/20 History [Vitamin B-12] Escitalopram [Lexapro] 20 mg PO DAILY 11/30/20 11/30/20 History Folic Acid 1 mg PO DAILY 11/30/20 11/30/20 History OLANZapine [ZyPREXA] 10 mg PO HS 11/30/20 11/30/20 History busPIRone HCL 15 mg PO TID 11/30/20 11/30/20 History tiZANidine HCL [Zanaflex] 4 mg PO TID 11/30/20 11/30/20 History traZODone HCL 100 - 200 mg PO HS PRN 11/30/20 11/30/20 History Diazepam [Valium] 10 mg PO TID PRN 12/06/20 12/06/20 History Allergies Allergy/AdvReac Type Severity Reaction Status Date / Time acetaminophen [From [place]] Allergy Mild Rash/Hives Verified 12/06/20 08:25 hydrocodone [From [place]] Allergy Rash/Hives Verified 12/06/20 08:24 cephalexin monohydrate AdvReac Unknown Verified 12/06/20 08:24 [From Keflex] hydromorphone HCl AdvReac Unknown Verified 12/06/20 08:24 [From Dilaudid] latex AdvReac Unknown Verified 12/06/20 08:24 promethazine [From Phenergan] AdvReac Unknown Verified 12/06/20 08:24 Physical Exam Vitals: Vital Signs Temp Pulse Pulse Pulse Resp BP BP 12/06/20 20:32 82 12/06/20 20:30 82 12/06/20 19:19 98.2 F 83 18 131/84 12/06/20 17:40 90 134/87 12/06/20 17:10 72 140/83 12/06/20 16:40 73 142/82 12/06/20 16:25 71 133/83 12/06/20 16:10 71 145/85 12/06/20 15:55 85 148/80 12/06/20 15:40 98.7 F 74 21 140/77 12/06/20 15:00 64 16 160/74 12/06/20 14:30 67 18 162/76 12/06/20 14:11 64 16 162/76 12/06/20 13:56 66 16 160/72 12/06/20 13:41 98.0 F 69 16 163/91 12/06/20 08:33 97.8 F 75 20 150/77 Pulse Ox 12/06/20 20:32 12/06/20 20:30 12/06/20 19:19 96 12/06/20 17:40 12/06/20 17:10 12/06/20 16:40 12/06/20 16:25 12/06/20 16:10 12/06/20 15:55 12/06/20 15:40 91 L 12/06/20 15:00 96 12/06/20 14:30 99 12/06/20 14:11 97 12/06/20 13:56 100 12/06/20 13:41 99 12/06/20 08:33 97 Intake and Output 12/06/20 12/06/20 12/06/20 06:59 14:59 22:59 Intake Total 2156 1700 Output Total 375 290 Balance 1781 1410 Intake: IV 2156 700 Intake, IV Titration 1000 Amount Lactated Ringers 1,000 ml 1000 @ 125 mls/hr IV .Q8H ONE Rx#:[id number] Output: Drainage 260 NOBLE#1 90 NOBLE#2 170 Urine 300 Estimated Blood Loss 75 30 Other: Weight 120.4 kg 120.4 kg Results CBC & Chem 7: 12/06/20 09:02 12/06/20 09:02 Labs: Abnormal Lab Results - Last 24 Hours (Table) 12/06/20 12/06/20 Range/Units 09:02 09:02 Hgb 11.3 L (11.4-16.0) gm/dL RDW 17.5 H (11.5-15.5) % Sodium 136 L (137-145) mmol/L BUN 19 H (7-17) mg/dL Creatinine 0.41 L (0.52-1.04) mg/dL Glucose 105 H (74-99) mg/dL AST 51 H (14-36) U/L ALT 60 H (4-34) U/L
[2020-12-07 01:04] LABS: Anisocytosis Slight; Basophils % (A) 0 %; Eosinophils # (A) 0.1 k/uL (0-0.7); Eosinophils % (A) 1 %; HCT 25.5 % (34.0-46.0); Hypochromasia Marked; Lymphocytes # (A) 2.1 k/uL (1.0-4.8); Lymphocytes % (A) 26 %; MCH 25.7 pg (25.0-35.0); MCHC 30.6 g/dL (31.0-37.0); MCV 83.8 fL (80.0-100.0); Mean Platelet Volume 8.4; Monocytes # (A) 0.6 k/uL (0-1.0); Monocytes % (A) 7 %; Neutrophils # (A) 5.1 k/uL (1.3-7.7); Neutrophils % (A) 64 %; Platelet Count 173 k/uL (150-450); RBC 3.05 m/uL (3.80-5.40); RDW 17.9 % (11.5-15.5)
[2020-12-07 01:07] LABS: HGB 7.8 gm/dL (11.4-16.0)
[2020-12-07] MEDS: oxyCODONE-APAP 5-325MG 1 EACH TAB PO PRN ×5 (02:53→20:37)
[2020-12-07] MEDS: ESCITALOPRAM 20 MG TAB PO SCH (07:13)
[2020-12-07] MEDS: FOLIC ACID 1 MG TAB PO SCH (07:13)
[2020-12-07] MEDS: CYANOCOBALAMIN 500 MCG TAB PO SCH (07:13)
[2020-12-07] MEDS: busPIRone HCl 5 MG TAB PO SCH ×3 (07:13→20:36)
[2020-12-07] MEDS: tiZANidine 4 MG TAB PO SCH ×3 (07:14→20:36)
[2020-12-07 08:10] LABS: Anisocytosis Slight; Basophils % (A) 0 %; Eosinophils % (A) 0 %; HCT 28.5 % (34.0-46.0); Hypochromasia Moderate; Lymphocytes # (A) 2.7 k/uL (1.0-4.8); Lymphocytes % (A) 35 %; MCH 26.8 pg (25.0-35.0); MCHC 32.5 g/dL (31.0-37.0); MCV 82.5 fL (80.0-100.0); Mean Platelet Volume 8.6; Monocytes # (A) 0.7 k/uL (0-1.0); Monocytes % (A) 9 %; Neutrophils # (A) 4.2 k/uL (1.3-7.7); Neutrophils % (A) 55 %; Platelet Count 279 k/uL (150-450); RBC 3.46 m/uL (3.80-5.40); RDW 17.7 % (11.5-15.5); WBC 7.6 k/uL (3.8-10.6)
[2020-12-07] MEDS: ALBUTEROL NEBULIZED 2.5 MG/3 ML INHALATION SCH ×2 (08:18→19:29)
[2020-12-07 08:29] LABS: HGB 9.3 gm/dL (11.4-16.0)
[2020-12-07 08:32] LABS: ALT 36 U/L (4-34); AST 29 U/L (14-36); African American GFR (CKD) >90 (>60 ml/min/1.73 sqM); Albumin 3.9 g/dL (3.5-5.0); Albumin/Globulin Ratio 1.7; Alkaline Phosphatase 95 U/L (38-126); Anion Gap 7 mmol/L; Blood Urea Nitrogen 16 mg/dL (7-17); Calcium 9.2 mg/dL (8.4-10.2); Carbon Dioxide 26 mmol/L (22-30); Chloride 100 mmol/L (98-107); Globulin 2.3 g/dL; Glucose 102 mg/dL (74-99); Non-African American GFR(CKD) >90 (>60 ml/min/1.73 sqM); Potassium 4.2 mmol/L (3.5-5.1); Sodium 133 mmol/L (137-145); Total Bilirubin 0.4 mg/dL (0.2-1.3); Total Protein 6.2 g/dL (6.3-8.2)
[2020-12-07] MEDS ORDERED: ENOXAPARIN 40 MG/0.4 ML SYRINGE SQ SCH (09:00)
[2020-12-07] MEDS: diazePAM 5 MG TAB PO PRN ×2 (11:31→19:27)
--- NOTE | 2020-12-07 14:33 | P.PN ---
Subjective Progress Note Date: 12/07/20 CHIEF COMPLAINT: Panniculus HISTORY OF PRESENT ILLNESS: Patient is postop day #1 status post panniculectomy. Yesterday after surgery patient had bleeding on the right side of the abdomen from the incision with evidence of a developing hematoma. Pressure dressing was applied. The bleeding has stopped. She did have a hemoglobin of 11.3 that dropped to 7.8 likely dilutional from IV fluids and is now back up to 9.3 without any blood products. Patient has had sanguinous output from her NOBLE drain. Drain 1 with 275 mL output and drained 2 with 210 ML output through the night. Patient reports that her pain is controlled. She denies any nausea or vomiting. Her Lovenox was held this morning. She is tolerating a regular diet. Afebrile. WBC is 8 PHYSICAL EXAM: VITAL SIGNS: Reviewed. GENERAL: Well-developed in no acute distress. HEENT: No sclera icterus. Extraocular movements grossly intact. Moist buccal mucosa. Head is atraumatic, normocephalic. ABDOMEN: Soft. Nondistended. Patient has hematoma on the right side of her incision. No active bleeding. The rest of this incision is clean dry and intact 2 NOBLE drains with sanguinous fluid output. NEUROLOGIC: Alert and oriented. Cranial nerves II through XII grossly intact. ASSESSMENT: 1. Panniculus status post panniculectomy 2. Right-sided abdominal hematoma 3. Anemia that is dilutional and with some acute blood loss anemia PLAN: -Continue abdominal binder -Repeat hemoglobin in a.m. -Hold Lovenox -Recommend not restarting Eliquis for at least 2 more days -Continue regular diet -Encourage patient to ambulate and to use incentive spirometer -Anticipate discharge tomorrow Physician Photography Teacher note has been reviewed by physician. Signing provider agrees with the documented findings, assessment, and plan of care. Objective - Vital Signs Vital signs: Vital Signs Temp 98.3 F 12/07/20 08:00 Pulse 87 12/07/20 08:28 Resp 18 12/07/20 08:00 BP 129/85 12/07/20 08:00 Pulse Ox 94 L 12/07/20 08:00 Intake & Output 12/06/20 12/07/20 12/07/20 18:59 06:59 18:59 Intake Total 3856 500 500 Output Total 525 365 70 Balance 3331 135 430 Weight 120.4 kg Intake: IV 2856 Intake, IV Titration 1000 500 Amount Lactated Ringers 1,000 ml 1000 500 @ 125 mls/hr IV .Q8H ONE Rx#:[id number] Oral 500 Output: Drainage 120 365 70 NOBLE#1 0 210 30 NOBLE#2 120 155 40 Urine 300 Estimated Blood Loss 105 Other: Voiding Method Toilet # Voids 3 - Labs CBC & Chem 7: 12/07/20 06:49 12/07/20 06:49 Labs: Abnormal Lab Results - Last 24 Hours (Table) 12/07/20 12/07/20 12/07/20 Range/Units 00:53 06:49 06:49 RBC 3.05 L 3.46 L (3.80-5.40) m/uL Hgb 7.8 L D 9.3 L D (11.4-16.0) gm/dL Hct 25.5 L 28.5 L (34.0-46.0) % MCHC 30.6 L (31.0-37.0) g/dL RDW 17.9 H 17.7 H (11.5-15.5) % Sodium 133 L (137-145) mmol/L Glucose 102 H (74-99) mg/dL ALT 36 H (4-34) U/L Total Protein 6.2 L (6.3-8.2) g/dL
--- NOTE | 2020-12-07 16:50 | P.PN ---
Progress Note - Text Progress Note Date: 12/07/20 - Chief Complaint Panniculectomy Consultation: This is a pleasant 50-year-old patient, who follows with Dr. Albert. Chronic stable medical conditions include fibromyalgia, history of DVT PE, antiphospholipid syndrome with lupus anticoagulant, chronic insomnia, history of an injury varicose veins. Patient's has a history of Ibis-en-Y bariatric surgery. Patient stopped smoking about a month ago in preparation for the surgery. Patient has undergone panniculectomy. Postprocedure patient has 2 NOBLE drain. Today: Sitting at the edge of the bed. Did eat her breakfast. She had quite a bit soaking of her abdominal dressing. NOBLE drain output as well as significant, bloody Review of systems: Was done for constitutional, cardiovascular, GI, pulmonary. relevant finding as above Active Medications Acetaminophen (Acetaminophen Tab 325 Mg Tab) 650 mg PO Q6HR PRN PRN Reason: Mild Pain or Fever >= 100.5 Stop: 01/05/21 13:40 Last Admin: 12/06/20 20:21 Dose: 650 mg Documented by: Albuterol Sulfate (Albuterol Nebulized 2.5 Mg/3 Ml) 2.5 mg INHALATION RT-BID [facility] Last Admin: 12/07/20 08:18 Dose: 2.5 mg Documented by: Bisacodyl (Bisacodyl 5 Mg Tablet.) 10 mg PO DAILY PRN PRN Reason: Constipation Buspirone HCl (Buspirone Hcl 5 Mg Tab) 15 mg PO TID [facility] Last Admin: 12/07/20 15:05 Dose: 15 mg Documented by: Cyanocobalamin (Cyanocobalamin 500 Mcg Tab) 3,000 mcg PO DAILY [facility] Last Admin: 12/07/20 07:13 Dose: 3,000 mcg Documented by: Diazepam (Diazepam 5 Mg Tab) 10 mg PO TID PRN PRN Reason: Anxiety Last Admin: 12/07/20 11:31 Dose: 10 mg Documented by: Escitalopram Oxalate (Escitalopram 20 Mg Tab) 20 mg PO DAILY [facility] Last Admin: 12/07/20 07:13 Dose: 20 mg Documented by: Folic Acid (Folic Acid 1 Mg Tab) 1 mg PO DAILY [facility] Last Admin: 12/07/20 07:13 Dose: 1 mg Documented by: Lidocaine HCl (Lidocaine 1% (10mg/Ml) For Iv Start) 0.1 ml INTRADERMA PER PROTOCOL PRN PRN Reason: IV Start Stop: 01/04/21 20:04 Last Admin: 12/06/20 09:04 Dose: 0.1 ml Documented by: Morphine Sulfate (Morphine Sulfate 4 Mg/Ml Syringe) 8 mg IVP Q4HR PRN PRN Reason: Pain Stop: 01/05/21 14:46 Last Admin: 12/06/20 20:22 Dose: 8 mg Documented by: Naloxone HCl (Naloxone 0.4 Mg/Ml 1 Ml Vial) 0.2 mg IV Q2M PRN PRN Reason: Opioid Reversal Stop: 01/05/21 13:40 Olanzapine (Olanzapine 10 Mg Tab) 10 mg PO HS [facility] Last Admin: 12/06/20 20:21 Dose: 10 mg Documented by: Ondansetron HCl (Ondansetron 4 Mg/2 Ml Vial) 4 mg IVP Q6HR PRN PRN Reason: Nausea And Vomiting Stop: 01/05/21 13:40 Oxycodone/Acetaminophen (Oxycodone-Apap 5-325mg 1 Each Tab) 1 each PO Q4HR PRN PRN Reason: Pain Stop: 01/05/21 13:40 Last Admin: 12/07/20 15:05 Dose: 1 each Documented by: Tizanidine HCl (Tizanidine 4 Mg Tab) 4 mg PO TID [facility] Last Admin: 12/07/20 15:05 Dose: 4 mg Documented by: Tramadol HCl (Tramadol 50 Mg Tab) 50 mg PO Q6H PRN PRN Reason: Mild to Moderate Pain Stop: 01/05/21 13:40 Trazodone HCl (Trazodone Hcl 100 Mg Tab) 200 mg PO HS PRN PRN Reason: sleep Past medical history to include: Asthma, DVT, fibromyalgia, arthritis, PE, antiphospholipid syndrome, lupus anticoagulant, migraine, insomnia, history of energy, varicose veins, eczema, bariatric surgery be Ibis-en-Y bypass, bipolar Social history: Patient smoked about half a pack a day closed to 40 years. Stopped about a month ago. Marijuana occasionally. Alcohol occasionally. Family history: *Clotting Disorder Physical examination: VITAL SIGNS: 98.8, 84, 17, 129/84, 98% room air GENERAL: Sitting of the edge of the bed awake EYES: Pupils equal. Conjunctiva normal. HEENT: External appearance of nose and ears normal, oral cavity grossly normal. NECK: JVD not raised; masses not palpable. HEART: First and second heart sounds are normal; no edema. LUNGS: Respiratory rate normal; decreased breath sounds. ABDOMEN: Soft, tender, binder in place, 2 NOBLE drain with serosanguineous discharge, liver spleen not palpable, no masses palpable. PSYCH: Alert and oriented x3; mood and affect normal. INVESTIGATIONS, reviewed in the clinical context: December 07: WBC 7.6 hemoglobin 9.3 potassium 4.2 creatinine 0.59 WBC 5.6 hemoglobin 11.3 platelets 322 potassium 4.6 creatinine 0.41 Assessment and plan: -Status post panniculectomy -Acute postprocedure blood loss anemia, expected from surgery Hemoglobin today 9.3 significant output from NOBLE drain -COPD in a previous smoker Ventolin when necessary -Chronic DVT and PE. Resume eliseo and mario with Dr. Huertas -Antiphospholipid syndrome and lupus anticoagulant with DVTs Anticoagulation -Chronic idiopathic insomnia On trazodone -Obesity BMI 38.6 History of Ibis-en-Y Y gastric bypass surgery -Bipolar disorder Continue Lexapro, BuSpar Patient was keen to go home. Did explain to her at length that she is putting out significant sanguinous drainage. As per Dr. Kiya gomes is to be held off. By concern was that she would drop her hemoglobin significantly. She is agreeable to stay back. Did also communicate with admin BEAM MACHINE OPERATOR from surgery. Total time spent about 40 minutes with over 25 minutes of discussion. Thank you Dr. Huertas
[2020-12-07] MEDS: ACETAMINOPHEN TAB 325 MG TAB PO PRN (17:53)
[2020-12-07 19:27] VITALS: RESP 18
[2020-12-07] MEDS: OLANZapine 10 MG TAB PO SCH (20:36)
[2020-12-07] MEDS ORDERED: APIXABAN 2.5 MG TABLET PO SCH ×2 (21:00)
[2020-12-08] MEDS: oxyCODONE-APAP 5-325MG 1 EACH TAB PO PRN ×3 (02:04→12:40)
[2020-12-08] MEDS: CYANOCOBALAMIN 500 MCG TAB PO SCH (07:43)
[2020-12-08 07:44] VITALS: BP 112/82; TEMP 98.8
[2020-12-08] MEDS: busPIRone HCl 5 MG TAB PO SCH (07:44)
[2020-12-08] MEDS: tiZANidine 4 MG TAB PO SCH (07:44)
[2020-12-08] MEDS: ESCITALOPRAM 20 MG TAB PO SCH (07:44)
[2020-12-08] MEDS: FOLIC ACID 1 MG TAB PO SCH (07:44)
[2020-12-08 07:45] LABS: Anisocytosis Slight; Basophils % (A) 0 %; Eosinophils # (A) 0.1 k/uL (0-0.7); Eosinophils % (A) 1 %; HCT 24.7 % (34.0-46.0); HGB 8.2 gm/dL (11.4-16.0); Hypochromasia Moderate; Lymphocytes % (A) 27 %; MCH 27.2 pg (25.0-35.0); MCHC 33.2 g/dL (31.0-37.0); MCV 81.9 fL (80.0-100.0); Mean Platelet Volume 8.4; Microcytosis Slight; Monocytes # (A) 0.7 k/uL (0-1.0); Monocytes % (A) 9 %; Neutrophils # (A) 4.5 k/uL (1.3-7.7); Neutrophils % (A) 62 %; Platelet Count 247 k/uL (150-450); RBC 3.02 m/uL (3.80-5.40); RDW 18.3 % (11.5-15.5); WBC 7.3 k/uL (3.8-10.6)
[2020-12-08] MEDS: ALBUTEROL NEBULIZED 2.5 MG/3 ML INHALATION SCH (08:35)
[2020-12-08 08:46] VITALS: PULSE 100
--- NOTE | 2020-12-08 11:37 | P.DS ---
Providers Date of admission: 12/07/20 15:10 Expected date of discharge: 12/08/20 Attending physician: Yung Huertas Consults: 12/06/20 13:39 Consult Physician Routine Consulting Provider: Evan Nash Consult Reason/Comments: Medical management Do you want consulting provider notified?: Yes Primary care physician: Greg Albert Hospital Course: Discharge diagnosis 1. Panniculus status post panniculectomy 2. Right-sided abdominal hematoma 3. Anemia that is dilutional and with some acute blood loss anemia that is expected from surgery Hospital course This is a 50-year-old female with history of obesity and chronic issues of skin irritation at her panniculus. Patient is status post panniculectomy. Patient tolerated surgery well. Her pain is controlled. She did develop a hematoma on the right of the abdomen at incision site. The hematoma is improving. She has no further signs of bleeding. Hemoglobin stable at 8.2 at discharge. Patient is tolerating diet. She is having flatus. She denies any difficulty urinating. She has been up and ambulating. She is afebrile. She is stable for discharge. Please refer to chart for any further details. Physician Equipment Mechanic Specialist note has been reviewed by physician. Signing provider agrees with the documented findings, assessment, and plan of care. Patient Condition at Discharge: Stable Plan - Discharge Summary Discharge Rx Participant: No New Discharge Prescriptions: New Docusate [Colace] 100 mg PO BID #30 capsule oxyCODONE-APAP 5-325MG [Percocet 5-325 mg] 1 each PO Q6HR PRN #12 tab PRN Reason: Pain Continue Apixaban [Eliquis] 2.5 mg PO BID busPIRone HCL 15 mg PO TID OLANZapine [ZyPREXA] 10 mg PO HS Escitalopram [Lexapro] 20 mg PO DAILY Cyanocobalamin (Vitamin B-12) [Vitamin B-12] 3,000 mcg PO DAILY tiZANidine HCL [Zanaflex] 4 mg PO TID Folic Acid 1 mg PO DAILY traZODone HCL 100 - 200 mg PO HS PRN PRN Reason: sleep Albuterol Inhaler [Ventolin Hfa Inhaler] 1 puff INHALATION BID Diazepam [Valium] 10 mg PO TID PRN PRN Reason: Anxiety Discharge Medication List Albuterol Inhaler [Ventolin Hfa Inhaler] 1 puff INHALATION BID 11/30/20 [History] Apixaban [Eliquis] 2.5 mg PO BID 11/30/20 [History] Cyanocobalamin (Vitamin B-12) [Vitamin B-12] 3,000 mcg PO DAILY 11/30/20 [History] Escitalopram [Lexapro] 20 mg PO DAILY 11/30/20 [History] Folic Acid 1 mg PO DAILY 11/30/20 [History] OLANZapine [ZyPREXA] 10 mg PO HS 11/30/20 [History] busPIRone HCL 15 mg PO TID 11/30/20 [History] tiZANidine HCL [Zanaflex] 4 mg PO TID 11/30/20 [History] traZODone HCL 100 - 200 mg PO HS PRN 11/30/20 [History] Diazepam [Valium] 10 mg PO TID PRN 12/06/20 [History] Docusate [Colace] 100 mg PO BID #30 capsule 12/08/20 [Rx] oxyCODONE-APAP 5-325MG [Percocet 5-325 mg] 1 each PO Q6HR PRN #12 tab 12/08/20 [Rx] Follow up Appointment(s)/Referral(s): Greg Albert MD [Primary Care Provider] - 1 Week Yung Huertas MD [STAFF PHYSICIAN] - 1 Week Activity/Diet/Wound Care/Special Instructions: HOME MEDS IN PHARMACY!!!!!!!!!!!!!!!!!! No driving while taking Percocet No lifting over 10 pounds You may shower. No soaking or tub baths for 2 weeks Very light activity until you are reevaluated at your follow up appointment with your surgeon Keep a log of NOBLE drain output and bring with you to your follow-up appointment Milk/strip drains 2-3 times a day Discharge Disposition: HOME SELF-CARE
--- NOTE | 2020-12-08 15:40 | P.PN ---
Progress Note - Text Progress Note Date: 12/08/20 - Chief Complaint Panniculectomy Consultation: This is a pleasant 50-year-old patient, who follows with Dr. Albert. Chronic stable medical conditions include fibromyalgia, history of DVT PE, antiphospholipid syndrome with lupus anticoagulant, chronic insomnia, history of an injury varicose veins. Patient's has a history of Ibis-en-Y bariatric surgery. Patient stopped smoking about a month ago in preparation for the surgery. Patient has undergone panniculectomy. Postprocedure patient has 2 NOBLE drain. November 07: Sitting at the edge of the bed. Did eat her breakfast. She had quite a bit soaking of her abdominal dressing. NOBLE drain output as well as significant, bloody November 08: No dizziness, no lightheadedness. Serosanguineous output from the NOBLE drain. Oral intake good. Has been cleared by surgery. Review of systems: Was done for constitutional, cardiovascular, GI, pulmonary. relevant finding as above Current medications reviewed in today's electronic records Past medical history to include: Asthma, DVT, fibromyalgia, arthritis, PE, antiphospholipid syndrome, lupus anticoagulant, migraine, insomnia, history of energy, varicose veins, eczema, bariatric surgery be Ibis-en-Y bypass, bipolar Social history: Patient smoked about half a pack a day closed to 40 years. Stopped about a month ago. Marijuana occasionally. Alcohol occasionally. Family history: *Clotting Disorder Physical examination: VITAL SIGNS: 98.8, 98, 18, 112/82, 94% room air GENERAL: Sitting of the edge of the bed awake EYES: Pupils equal. Conjunctiva normal. HEENT: External appearance of nose and ears normal, oral cavity grossly normal. NECK: JVD not raised; masses not palpable. HEART: First and second heart sounds are normal; no edema. LUNGS: Respiratory rate normal; decreased breath sounds. ABDOMEN: Soft, tender, binder in place, 2 NOBLE drain with serosanguineous discharge, liver spleen not palpable, no masses palpable. PSYCH: Alert and oriented x3; mood and affect normal. INVESTIGATIONS, reviewed in the clinical context: December 08: WBC 7.3 hemoglobin 8.2 platelets 247 December 07: WBC 7.6 hemoglobin 9.3 potassium 4.2 creatinine 0.59 WBC 5.6 hemoglobin 11.3 platelets 322 potassium 4.6 creatinine 0.41 Assessment and plan: -Status post panniculectomy -Acute postprocedure blood loss anemia, expected from surgery Hemoglobin today 8.2 significant output from NOBLE drain -COPD in a previous smoker Ventolin when necessary -Chronic DVT and PE. Resume eliquis and okay with Dr. Huertas -Antiphospholipid syndrome and lupus anticoagulant with DVTs Anticoagulation -Chronic idiopathic insomnia On trazodone -Obesity BMI 38.6 History of Ibis-en-Y Y gastric bypass surgery -Bipolar disorder Continue Lexapro, BuSpar Eliquis to be resumed when okay with Dr. Huertas. Follow-up CBC. Care was discussed with the patient and mother the bedside. Thank you Dr. Huertas
== END 2020-12-08 13:48 | disposition home or self-care (01) ==
LOC: OR 07:50 → EDSTATUS 10:25 → 4SSUR 14:54 → OR 12-07 15:10
PROVIDERS: ADMIT Surgery; ATTEND Surgery
DX: M79.3 Panniculitis, unspecified (principal); E65 Localized adiposity; R21 Rash and other nonspecific skin eruption; D62 Acute posthemorrhagic anemia; K43.2 Incisional hernia without obstruction or gangrene; L76.32 Postprocedural hematoma of skin and subcutaneous tissue following other procedure; Y83.8 Other surgical procedures as the cause of abnormal reaction of the patient, or of later complication, without mention of misadventure at the time of the procedure; J44.9 Chronic obstructive pulmonary disease, unspecified; M19.90 Unspecified osteoarthritis, unspecified site; I25.2 Old myocardial infarction; J45.909 Unspecified asthma, uncomplicated; E66.9 Obesity, unspecified; Z68.38 Body mass index [BMI] 38.0-38.9, adult; I83.90 Asymptomatic varicose veins of unspecified lower extremity; D68.62 Lupus anticoagulant syndrome; M79.7 Fibromyalgia; L30.9 Dermatitis, unspecified; F51.01 Primary insomnia; F41.9 Anxiety disorder, unspecified; F31.9 Bipolar disorder, unspecified; Z79.01 Long term (current) use of anticoagulants; Z79.899 Other long term (current) drug therapy; Z88.5 Allergy status to narcotic agent; Z88.1 Allergy status to other antibiotic agents; Z88.8 Allergy status to other drugs, medicaments and biological substances; Z87.828 Personal history of other (healed) physical injury and trauma; Z86.711 Personal history of pulmonary embolism; Z87.891 Personal history of nicotine dependence; Z86.69 Personal history of other diseases of the nervous system and sense organs; Z90.710 Acquired absence of both cervix and uterus; Z86.718 Personal history of other venous thrombosis and embolism; Z86.14 Personal history of Methicillin resistant Staphylococcus aureus infection; Z98.84 Bariatric surgery status; Z87.01 Personal history of pneumonia (recurrent); Z83.2 Family history of diseases of the blood and blood-forming organs and certain disorders involving the immune mechanism
CPT/HCPCS: 15830; 94640 ×4; 64999; 80053 ×2; 85025 ×3; 85610; G0378 ×2; J2250; J2270; J1100; J2710; J2405; J2001; J3010; J2795; J0330; J2704; J1644

== ENCOUNTER 2021-01-17 02:22 | Inpatient (IN) | payer MEDICARE ==
[2021-01-17] MEDS ORDERED: NALOXONE 0.4 MG/ML 1 ML VIAL IV PRN (02:46)
--- NOTE | 2021-01-17 02:46 | ED ---
Recheck HPI - General Stated Complaint: Abnormal Labs Time Seen by Provider: 01/17/21 02:26 - History of Present Illness Initial Comments: This patient is a 50-year-old woman who arrives as a transfer from [facility]. The patient states that she had gone there tonight after she received a call from her on-call physician, stating that her hemoglobin was low and that she needed to go to the emergency department. The patient states that she had routine labs drawn earlier for a routine physical. Patient states that she has been feeling a little fatigued but otherwise not having any specific symptoms. She had not noted bloody or dark tarry stools. MD Complaint: abnormal lab Onset/Timin -: days(s) Returns Today for: Called Because of Abnormal Lab/Test Symptoms Since Prior Visit: no new symptoms Context: called for abnormal lab result Associated Symptoms: none - Related Data Home Medications Medication Instructions Recorded Confirmed Albuterol Inhaler [Ventolin Hfa 1 puff INHALATION BID 11/30/20 11/30/20 Inhaler] Apixaban [Eliquis] 2.5 mg PO BID 11/30/20 12/06/20 Cyanocobalamin (Vitamin B-12) 3,000 mcg PO DAILY 11/30/20 12/06/20 [Vitamin B-12] Escitalopram [Lexapro] 20 mg PO DAILY 11/30/20 11/30/20 Folic Acid 1 mg PO DAILY 11/30/20 11/30/20 OLANZapine [ZyPREXA] 10 mg PO HS 11/30/20 11/30/20 busPIRone HCL 15 mg PO TID 11/30/20 11/30/20 tiZANidine HCL [Zanaflex] 4 mg PO TID 11/30/20 11/30/20 traZODone HCL 100 - 200 mg PO HS PRN 11/30/20 11/30/20 Diazepam [Valium] 10 mg PO TID PRN 12/06/20 12/06/20 Previous Rx's Medication Instructions Recorded Docusate [Colace] 100 mg PO BID #30 capsule 12/08/20 oxyCODONE-APAP 5-325MG [Percocet 1 each PO Q6HR PRN #12 tab 12/08/20 5-325 mg] Allergies Allergy/AdvReac Type Severity Reaction Status Date / Time hydrocodone [From [place]] Allergy Rash/Hives Verified 01/17/21 02:42 cephalexin monohydrate AdvReac Unknown Verified 01/17/21 02:42 [From Keflex] hydromorphone HCl AdvReac Unknown Verified 01/17/21 02:42 [From Dilaudid] latex AdvReac Unknown Verified 01/17/21 02:42 promethazine [From Phenergan] AdvReac Unknown Verified 01/17/21 02:42 Review of Systems ROS Statement: Those systems with pertinent positive or pertinent negative responses have been documented in the HPI. ROS Other: All systems not noted in ROS Statement are negative. Constitutional: Denies: fever, chills Respiratory: Denies: cough, dyspnea, hemoptysis Cardiovascular: Reports: edema. Denies: chest pain, palpitations, syncope Endocrine: Reports: fatigue Gastrointestinal: Denies: abdominal pain, nausea, vomiting, melena, hematochezia Genitourinary: Denies: dysuria, hematuria Musculoskeletal: Denies: back pain Skin: Denies: rash, change in color Neurological: Denies: headache, weakness, numbness Hematological/Lymphatic: Denies: easy bleeding Past Medical History Past Medical History: Asthma, Deep Vein Thrombosis (DVT), Fibromyalgia, Myocardial Infarction ([place]), Osteoarthritis (OA), Pneumonia, Pulmonary Embolus (PE), Skin Disorder Additional Past Medical History / Comment(s): Antiphospholipid syndrome, lupus anticoagulant, migraines, insomnia, history of head injury , DVT and pulmonary embolism approximately 9 years ago, varicose veins, eczema, Last Myocardial Infarction Date:: 2007 History of Any Multi-Drug Resistant Organisms: MRSA Date of last positivie culture/infection: 2004 MDRO Source:: arm Past Surgical History: Adenoidectomy, Bariatric Surgery, Bowel Resection, Hysterectomy, Orthopedic Surgery, Tonsillectomy Additional Past Surgical History / Comment(s): Bariatric surgery with a betty en y, bowel reconstruction from herniated bowel, vaginal reconstruction, rt leg- fx/screws, bladder suspension surgery, surgery on rt thumb, paniculectomy Past Anesthesia/Blood Transfusion Reactions: Motion Sickness Additional Past Anesthesia/Blood Transfusion Reaction / Comment(s): stated "had a difficult time getting her put under general for thumb surgery" Past Psychological History: Anxiety, Bipolar, Depression Additional Psychological History / Comment(s): "boarderline personality disorder" Smoking Status: Former smoker Past Alcohol Use History: Occasional Additional Past Alcohol Use History / Comment(s): started smoking at age 9 , q uit smoking 2 months ago, Past Drug Use History: Marijuana Additional Drug Use History / Comment(s): occ use - Past Family History Mother Family Medical History: Blood Disorder Additional Family Medical History / Comment(s): blood clot in her hand Father Family Medical History: Cancer Additional Family Medical History / Comment(s): . General Exam General appearance: alert, in no apparent distress Head exam: Present: atraumatic, normocephalic Eye exam: Present: normal appearance. Absent: scleral icterus, conjunctival injection Neck exam: Present: normal inspection Respiratory exam: Present: normal lung sounds bilaterally. Absent: respiratory distress, wheezes, rales, rhonchi, stridor Cardiovascular Exam: Present: regular rate, normal rhythm, normal heart sounds. Absent: systolic murmur, diastolic murmur, rubs, gallop GI/Abdominal exam: Present: soft. Absent: tenderness, guarding Extremities exam: Present: normal inspection, normal capillary refill. Absent: pedal edema, calf tenderness Back exam: Present: normal inspection. Absent: CVA tenderness (R), CVA tenderness (L) Neurological exam: Present: alert Skin exam: Present: warm, dry, intact, normal color. Absent: rash Course Vital Signs 01/17/21 02:28 Temperature 98.8 F Pulse Rate 72 Respiratory 18 Rate Blood Pressure 160/81 O2 Sat by Pulse 99 Oximetry Disposition Clinical Impression: Anemia, GI bleeding Disposition: ADMITTED IP TO THIS HOSP Condition: Good Is patient prescribed a controlled substance at d/c from ED?: No Referrals: Greg Albert MD [Primary Care Provider] - 1-2 days
[2021-01-17] MEDS: SODIUM CHLORIDE 0.9% 1,000 ML IV SCH ×2 (03:18→18:32)
[2021-01-17] MEDS: MORPHINE SULFATE 4 MG/ML SYRINGE IV PRN ×6 (03:18→23:51)
[2021-01-17 04:17] LABS: Anisocytosis Slight; Basophils # (A) 0.1 k/uL (0-0.2); Basophils % (A) 1 %; Eosinophils # (A) 0.2 k/uL (0-0.7); Eosinophils % (A) 2 %; HCT 26.7 % (34.0-46.0); Hypochromasia Marked; Lymphocytes # (A) 2.5 k/uL (1.0-4.8); Lymphocytes % (A) 25 %; MCH 25.1 pg (25.0-35.0); MCV 83.6 fL (80.0-100.0); Mean Platelet Volume 7.4; Monocytes # (A) 0.7 k/uL (0-1.0); Monocytes % (A) 6 %; Neutrophils # (A) 6.5 k/uL (1.3-7.7); Neutrophils % (A) 64 %; Poikilocytosis Moderate; RBC 3.19 m/uL (3.80-5.40); RDW 18.5 % (11.5-15.5); WBC 10.1 k/uL (3.8-10.6)
[2021-01-17 04:31] LABS: Platelet Count 650 k/uL (150-450)
[2021-01-17] MEDS ORDERED: ALBUTEROL HFA INHALER INHALATION PRN (11:53)
[2021-01-17] MEDS ORDERED: LIDOCAINE 1% INJ 10MG/ML (20 ML MDV) ONE (12:12)
[2021-01-17] MEDS ORDERED: PROPOFOL 10 MG/ML 20 ML VIAL IV ONE (12:12)
--- NOTE | 2021-01-17 13:35 | P.GSCN ---
History of Present Illness Consult date: 01/17/21 Reason for Consult: Anemia, GI bleed History of present illness: This a 50-year-old female who was admitted through emergency room with complai nts of anemia. Apparently the patient is guaiac positive. She denies any history of any rectal bleeding. She is a history of gastric bypass Past Medical History Past Medical History: Asthma, Deep Vein Thrombosis (DVT), Fibromyalgia, Myocardial Infarction ([place]), Osteoarthritis (OA), Pneumonia, Pulmonary Embolus (PE), Skin Disorder Additional Past Medical History / Comment(s): Antiphospholipid syndrome, lupus anticoagulant, migraines, insomnia, history of head injury , DVT and pulmonary embolism approximately 9 years ago, varicose veins, eczema, Last Myocardial Infarction Date:: approx 2007 History of Any Multi-Drug Resistant Organisms: MRSA Year Discovered:: 2004 MDRO Source:: arm Past Surgical History: Adenoidectomy, Bariatric Surgery, Bowel Resection, Hysterectomy, Orthopedic Surgery, Tonsillectomy Additional Past Surgical History / Comment(s): Bariatric surgery with a betty en y, bowel reconstruction from herniated bowel, vaginal reconstruction, rt leg- fx/screws, bladder suspension surgery, surgery on rt thumb, paniculectomy Past Anesthesia/Blood Transfusion Reactions: Motion Sickness Additional Past Anesthesia/Blood Transfusion Reaction / Comm: stated "had a difficult time getting her put under general for thumb surgery" Past Psychological History: Anxiety, Bipolar, Depression Additional Psychological History / Comment(s): "boarderline personality disorder" Smoking Status: Former smoker Past Alcohol Use History: Occasional Additional Past Alcohol Use History / Comment(s): started smoking at age 9 , quit smoking 2 months ago, Past Drug Use History: Marijuana Additional Drug Use History / Comment(s): occ use - Past Family History Mother Family Medical History: Blood Disorder Additional Family Medical History / Comment(s): blood clot in her hand Father Family Medical History: Cancer Additional Family Medical History / Comment(s): . Medications and Allergies Home Medications Medication Instructions Recorded Confirmed Type Albuterol Inhaler [Ventolin Hfa 1 puff INHALATION RT-Q6H PRN 11/30/20 01/17/21 History Inhaler] Apixaban [Eliquis] 2.5 mg PO BID 11/30/20 01/17/21 History Cyanocobalamin (Vitamin B-12) 1,000 mcg PO DAILY 11/30/20 01/17/21 History [Vitamin B-12] Escitalopram [Lexapro] 20 mg PO DAILY 11/30/20 01/17/21 History Folic Acid 1 mg PO DAILY 11/30/20 01/17/21 History OLANZapine [ZyPREXA] 10 mg PO HS 11/30/20 01/17/21 History busPIRone HCL 15 mg PO TID 11/30/20 01/17/21 History tiZANidine HCL [Zanaflex] 4 mg PO BID 11/30/20 01/17/21 History traZODone HCL 100 - 200 mg PO HS PRN 11/30/20 01/17/21 History Cholecalciferol [Vitamin D3 (25 25 mcg PO DAILY 01/17/21 01/17/21 History Mcg = 1000 Iu)] Naproxen [Naprosyn] 500 mg PO Q12HR PRN 01/17/21 01/17/21 History Sennosides/Docusate Sodium [Senna 1 cap PO DAILY PRN 01/17/21 01/17/21 History Plus 8.6-50 mg Softgel] Allergies Allergy/AdvReac Type Severity Reaction Status Date / Time hydrocodone [From [place]] Allergy Rash/Hives Verified 01/17/21 02:42 cephalexin monohydrate AdvReac Unknown Verified 01/17/21 02:42 [From Keflex] hydromorphone HCl AdvReac Unknown Verified 01/17/21 02:42 [From Dilaudid] latex AdvReac Unknown Verified 01/17/21 02:42 promethazine [From Phenergan] AdvReac Unknown Verified 01/17/21 02:42 Surgical - Exam Vital Signs Temp Pulse Resp BP Pulse Ox 98.8 F 72 18 160/81 99 01/17/21 02:28 01/17/21 02:28 01/17/21 02:28 01/17/21 02:28 01/17/21 02:28 - General well developed, well nourished, no distress - Eyes PERRL - ENT normal pinna - Neck no masses - Respiratory normal expansion - Cardiovascular Rhythm: regular - Abdomen Abdomen: soft, non tender Results - Labs 01/17/21 02:57 Abnormal Lab Results - Last 24 Hours (Table) 01/17/21 Range/Units 02:57 RBC 3.19 L (3.80-5.40) m/uL Hgb 8.0 L (11.4-16.0) gm/dL Hct 26.7 L (34.0-46.0) % MCHC 30.0 L (31.0-37.0) g/dL RDW 18.5 H (11.5-15.5) % Plt Count 650 H D (150-450) k/uL Assessment and Plan Assessment: Anemia, guaiac-positive stool History of gastric bypass Patient will be scheduled for EGD colonoscopy
[2021-01-17] MEDS: FOLIC ACID 1 MG TAB PO SCH (14:20)
[2021-01-17] MEDS: busPIRone HCl 5 MG TAB PO SCH ×3 (14:20→20:19)
[2021-01-17] MEDS: ESCITALOPRAM 20 MG TAB PO SCH (14:34)
[2021-01-17] MEDS ORDERED: diphenhydrAMINE 50 MG CAP PO PRN (18:18)
[2021-01-17] MEDS ORDERED: PEG 3350-NA SULF,BICARB,CL/KCL 4,000 ML BOTTLE PO ONE (18:18)
[2021-01-17] MEDS: diphenhydrAMINE 25 MG CAP PO PRN (18:57)
[2021-01-17] MEDS: HYDROcodone/APAP 5-325MG 1 EACH TAB PO PRN (18:58)
[2021-01-17] MEDS: tiZANidine 4 MG TAB PO SCH (20:19)
--- NOTE | 2021-01-17 20:24 | P.HPIM ---
History of Present Illness H&P Date: 01/17/21 Chief Complaint: Low hemoglobin Consultation: This is a pleasant 50-year-old patient, who follows with Dr. Albert. Chronic stable medical conditions include fibromyalgia, history of DVT PE, antiphospholipid syndrome with lupus anticoagulant, chronic insomnia, history of varicose veins. Patient's has a history of Betty-en-Y bariatric surgery. Patient on 12/07/2020 underwent panniculectomy. Was having significant oozing at that time was discharged overdrink be Kelsy but had some serosanguineous discharge. That was removed about 2 weeks following discharge. Patient has been feeling weak and tired. Often using a cane. Appetite has been fair. No change in bowel movements. Patient was transferred here from [facility] after hemoglobin was found to be low. She has denied any dock stools. Hemoglobin was apparently 6.5. Hemoglobin checked here was 8. Review of systems: GEN.: Tired EYES: None HEENT: None NECK: None RESPIRATORY: None CARDIOVASCULAR: None GASTROINTESTINAL: None GENITOURINARY: None MUSCULOSKELETAL: Some chronic pain in the joints LYMPHATICS: None HEMATOLOGICAL: None PSYCHIATRY: Anxious NEUROLOGICAL: None Past medical history to include: Asthma, DVT, fibromyalgia, arthritis, PE, antiphospholipid syndrome, lupus anticoagulant, migraine, insomnia, history of energy, varicose veins, eczema, bariatric surgery be Betty-en-Y bypass, bipolar Social history: Patient smoked about half a pack a day closed to 40 years. Stopped about 3 month ago. Marijuana occasionally. Alcohol occasionally. Family history: *Clotting Disorder Physical examination: VITAL SIGNS: 98.7, 66, 16, 133/70, 98% room air GENERAL: BMI 40.2, declining bed, tired awake EYES: Pupils equal. Conjunctiva pale. HEENT: External appearance of nose and ears normal, oral cavity grossly normal. NECK: JVD not raised; masses not palpable. HEART: First and second heart sounds are normal; no edema. LUNGS: Respiratory rate normal; decreased breath sounds. ABDOMEN: Soft, , liver spleen not palpable, no masses palpable. Incision across the abdominal appears to be doing well. PSYCH: Alert and oriented x3; mood and affect anxious NEUROLOGICAL: Cranial nerves grossly intact; no facial asymmetry, power and sensation grossly intact. LYMPHATICS: No lymph nodes palpable in the axilla and neck INVESTIGATIONS, reviewed in the clinical context: WBC 10.1 hemoglobin 8 platelets 650 Assessment and plan: -Acute blood loss anemia from recent surgery. Patient had a serosanguineous discharge from the [facility] drains incisions had been losing when she left. Current hemoglobin is 8 -COPD in a previous smoker Ventolin when necessary -Chronic DVT and PE. Resume eliquis and okay with Dr. Huertas -Antiphospholipid syndrome and lupus anticoagulant with DVTs Anticoagulation -Chronic idiopathic insomnia On trazodone -Obesity BMI 38.6 History of Betty-en-Y Y gastric bypass surgery -Bipolar disorder Continue Lexapro, BuSpar Eliquis on hold. Follow H&H. Resume home medications. Hold any NSAIDs. IV fluids. Discussed with the patient. Thank you Dr. Huertas Past Medical History Past Medical History: Asthma, Deep Vein Thrombosis (DVT), Fibromyalgia, Myocardial Infarction ([place]), Osteoarthritis (OA), Pneumonia, Pulmonary Embolus (PE), Skin Disorder Additional Past Medical History / Comment(s): Antiphospholipid syndrome, lupus anticoagulant, migraines, insomnia, history of head injury , DVT and pulmonary embolism approximately 9 years ago, varicose veins, eczema, Last Myocardial Infarction Date:: 2007 History of Any Multi-Drug Resistant Organisms: MRSA Date of last positivie culture/infection: 2004 MDRO Source:: arm Past Surgical History: Adenoidectomy, Bariatric Surgery, Bowel Resection, Hysterectomy, Orthopedic Surgery, Tonsillectomy Additional Past Surgical History / Comment(s): Bariatric surgery with a betty en y, bowel reconstruction from herniated bowel, vaginal reconstruction, rt leg- fx/screws, bladder suspension surgery, surgery on rt thumb, paniculectomy Past Anesthesia/Blood Transfusion Reactions: Motion Sickness Additional Past Anesthesia/Blood Transfusion Reaction / Comment(s): stated "had a difficult time getting her put under general for thumb surgery" Past Psychological History: Anxiety, Bipolar, Depression Additional Psychological History / Comment(s): "boarderline personality disorder" Smoking Status: Former smoker Past Alcohol Use History: Occasional Additional Past Alcohol Use History / Comment(s): started smoking at age 9 , quit smoking 2 months ago, Past Drug Use History: Marijuana Additional Drug Use History / Comment(s): occ use - Past Family History Mother Family Medical History: Blood Disorder Additional Family Medical History / Comment(s): blood clot in her hand Father Family Medical History: Cancer Additional Family Medical History / Comment(s): . Medications and Allergies Home Medications Medication Instructions Recorded Confirmed Type Albuterol Inhaler [Ventolin Hfa 1 puff INHALATION RT-Q6H PRN 11/30/20 01/17/21 History Inhaler] Apixaban [Eliquis] 2.5 mg PO BID 11/30/20 01/17/21 History Cyanocobalamin (Vitamin B-12) 1,000 mcg PO DAILY 11/30/20 01/17/21 History [Vitamin B-12] Escitalopram [Lexapro] 20 mg PO DAILY 11/30/20 01/17/21 History Folic Acid 1 mg PO DAILY 11/30/20 01/17/21 History OLANZapine [ZyPREXA] 10 mg PO HS 11/30/20 01/17/21 History busPIRone HCL 15 mg PO TID 11/30/20 01/17/21 History tiZANidine HCL [Zanaflex] 4 mg PO BID 11/30/20 01/17/21 History traZODone HCL 100 - 200 mg PO HS PRN 11/30/20 01/17/21 History Cholecalciferol [Vitamin D3 (25 25 mcg PO DAILY 01/17/21 01/17/21 History Mcg = 1000 Iu)] Naproxen [Naprosyn] 500 mg PO Q12HR PRN 01/17/21 01/17/21 History Sennosides/Docusate Sodium [Senna 1 cap PO DAILY PRN 01/17/21 01/17/21 History Plus 8.6-50 mg Softgel] Allergies Allergy/AdvReac Type Severity Reaction Status Date / Time hydrocodone [From [place]] Allergy Itching Verified 01/17/21 18:25 cephalexin monohydrate AdvReac yeast Verified 01/17/21 18:25 [From Keflex] infection hydromorphone HCl AdvReac Itching Verified 01/17/21 18:25 [From Dilaudid] latex AdvReac Rash/Hives Verified 01/17/21 18:25 promethazine [From Phenergan] AdvReac Unknown Verified 01/17/21 02:42 Physical Exam Vitals: Vital Signs Temp Pulse Resp BP Pulse Ox 01/17/21 06:56 98.7 F 66 16 133/70 98 01/17/21 02:28 98.8 F 72 18 160/81 99 Intake and Output 01/16/21 01/17/21 01/17/21 22:59 06:59 14:59 Other: Weight 113.398 kg Results CBC & Chem 7: 01/17/21 02:57 Labs: Abnormal Lab Results - Last 24 Hours (Table) 01/17/21 Range/Units 02:57 RBC 3.19 L (3.80-5.40) m/uL Hgb 8.0 L (11.4-16.0) gm/dL Hct 26.7 L (34.0-46.0) % MCHC 30.0 L (31.0-37.0) g/dL RDW 18.5 H (11.5-15.5) % Plt Count 650 H D (150-450) k/uL
[2021-01-17] MEDS ORDERED: OLANZapine 10 MG TAB PO SCH (21:00)
[2021-01-18] MEDS: HYDROcodone/APAP 5-325MG 1 EACH TAB PO PRN ×2 (03:15→15:30)
[2021-01-18] MEDS: diphenhydrAMINE 25 MG CAP PO PRN ×2 (03:15→15:42)
[2021-01-18] MEDS: SODIUM CHLORIDE 0.9% 1,000 ML IV SCH (03:18)
[2021-01-18] MEDS: MORPHINE SULFATE 4 MG/ML SYRINGE IV PRN ×2 (04:17→11:58)
[2021-01-18 06:47] LABS: Anisocytosis Slight; Basophils % (A) 1 %; Eosinophils # (A) 0.1 k/uL (0-0.7); Eosinophils % (A) 1 %; HCT 25.6 % (34.0-46.0); HGB 7.7 gm/dL (11.4-16.0); Hypochromasia Marked; Lymphocytes # (A) 1.7 k/uL (1.0-4.8); Lymphocytes % (A) 23 %; MCH 25.1 pg (25.0-35.0); MCHC 30.1 g/dL (31.0-37.0); MCV 83.3 fL (80.0-100.0); Mean Platelet Volume 6.9; Monocytes # (A) 0.5 k/uL (0-1.0); Monocytes % (A) 6 %; Neutrophils % (A) 66 %; Platelet Count 606 k/uL (150-450); Poikilocytosis Marked; RBC 3.08 m/uL (3.80-5.40); RDW 18.5 % (11.5-15.5); WBC 7.5 k/uL (3.8-10.6)
[2021-01-18] MEDS: tiZANidine 4 MG TAB PO SCH (09:00)
[2021-01-18] MEDS: ESCITALOPRAM 20 MG TAB PO SCH (09:00)
[2021-01-18] MEDS ORDERED: CYANOCOBALAMIN 500 MCG TAB PO SCH (09:00)
[2021-01-18] MEDS: busPIRone HCl 5 MG TAB PO SCH (09:00)
[2021-01-18] MEDS: FOLIC ACID 1 MG TAB PO SCH (09:00)
[2021-01-18] MEDS ORDERED: IV FLUID CONTINUATION 300 ML IV ONE (12:14)
--- NOTE | 2021-01-18 12:34 | P.OP ---
Date of Procedure: 01/18/21 Preoperative Diagnosis: Anemia, GI bleed Postoperative Diagnosis: Mild esophagitis No evidence of active GI bleed Procedure(s) Performed: EGD Colonoscopy Anesthesia: MAC Surgeon: Yung Huertas Pathology: other (Esophagus) Condition: stable Disposition: PACU Description of Procedure: The patient's placed on the endoscopy table lateral position. She received IV sedation. The gastroscope was oropharynx passed in the esophagus and then into the stomach. Scope is then placed through the gastrojejunostomy. There is no obstruction. There is no evidence of any marginal ulcers. There was some mild esophagitis. This was biopsied. Scope was withdrawn. There is no evidence of any upper GI bleed. Next digital rectal exam was performed which revealed no abnormalities. The colonoscope was then placed patient anus passed throughout the colon. Scope was replaced into the right colon sigmoid tortuosity the valve. Scope withdrawn. The remainder the ascending colon transverse colon ascending colon and sigmoid colon appeared normal. Scope back the rectum this appeared normal. Scope withdrawn patient. There is no unsteady upper or lower GI bleed.
[2021-01-18 14:11] VITALS: RESP 16; TEMP 98.1
[2021-01-18 14:38] VITALS: BP 141/82; PULSE 93
--- NOTE | 2021-01-18 23:06 | P.DS ---
Providers Date of admission: 01/17/21 02:46 Expected date of discharge: 01/18/21 Attending physician: Evan Nash Consults: 01/17/21 02:47 Consult Physician Routine Consulting Provider: Yung Huertas Consult Reason/Comments: your patient. Anemia. Possible GI bleeding Do you want consulting provider notified?: Yes Primary care physician: Greg [facility] Course: Chief Complaint: Low hemoglobin Consultation: This is a pleasant 50-year-old patient, who follows with Dr. Albert. Chronic stable medical conditions include fibromyalgia, history of DVT PE, antiphospholipid syndrome with lupus anticoagulant, chronic insomnia, history of varicose veins. Patient's has a history of Ibis-en-Y bariatric surgery. Patient on 12/07/2020 underwent panniculectomy. Was having significant oozing at that time was discharged overdrink be Kelsy but had some serosanguineous discharge. That was removed about 2 weeks following discharge. Patient has been feeling weak and tired. Often using a cane. Appetite has been fair. No change in bowel movements. Patient was transferred here from [facility] after hemoglobin was found to be low. She has denied any dock stools. Hemoglobin was apparently 6.5. Hemoglobin checked here was 8. January 18: Underwent EGD by Dr. Huertas. Showed mild esophagitis. Colonoscopy: Unremarkable. Cleared By Dr. Huertas to be discharged. Patient take iron supplements. Consultation: Dr. Huertas from general surgery Past medical history to include: Asthma, DVT, fibromyalgia, arthritis, PE, antiphospholipid syndrome, lupus anticoagulant, migraine, insomnia, history of energy, varicose veins, eczema, bariatric surgery be Ibis-en-Y bypass, bipolar Social history: Patient smoked about half a pack a day closed to 40 years. Stopped about 3 month ago. Marijuana occasionally. Alcohol occasionally. Family history: *Clotting Disorder Physical examination: VITAL SIGNS: 98.1, 93, 16, 141/82, 94% room air GENERAL: Reclining bed, comfortable EYES: Pupils equal. Conjunctiva pale. HEENT: External appearance of nose and ears normal, oral cavity grossly normal. NECK: JVD not raised; masses not palpable. HEART: First and second heart sounds are normal; no edema. LUNGS: Respiratory rate normal; decreased breath sounds. ABDOMEN: Soft, , liver spleen not palpable, no masses palpable. Incision across the abdominal appears to be doing well. PSYCH: Alert and oriented x3; mood and affect anxious INVESTIGATIONS, reviewed in the clinical context: January 18: Hemoglobin 7.7 WBC 10.1 hemoglobin 8 platelets 650 Assessment and plan: -Acute blood loss anemia from recent surgery. Patient had a serosanguineous discharge from the [facility] dra[facility] incisions had been losing when she left. Current hemoglobin is 8 -Mild gastritis -COPD in a previous smoker Ventolin when necessary -Chronic DVT and PE. Resume eliquis and okay with Dr. Huertas -Antiphospholipid syndrome and lupus anticoagulant with DVTs Anticoagulation -Chronic idiopathic insomnia On trazodone -Obesity BMI 38.6 History of Ibis-en-Y Y gastric bypass surgery -Bipolar disorder Continue Lexapro, BuSpar Resume eliquis. Other medications to continue. Iron supplement. Thank you Dr. Huertas Plan - Discharge Summary Discharge Rx Participant: Yes New Discharge Prescriptions: Continue Apixaban [Eliquis] 2.5 mg PO BID busPIRone HCL 15 mg PO TID OLANZapine [ZyPREXA] 10 mg PO HS Escitalopram [Lexapro] 20 mg PO DAILY Cyanocobalamin (Vitamin B-12) [Vitamin B-12] 1,000 mcg PO DAILY Sennosides/Docusate Sodium [Senna Plus 8.6-50 mg Softgel] 1 cap PO DAILY PRN PRN Reason: Constipation tiZANidine HCL [Zanaflex] 4 mg PO BID Folic Acid 1 mg PO DAILY traZODone HCL 100 - 200 mg PO HS PRN PRN Reason: sleep Albuterol Inhaler [Ventolin Hfa Inhaler] 1 puff INHALATION RT-Q6H PRN PRN Reason: Shortness Of Breath Cholecalciferol [Vitamin D3 (25 Mcg = 1000 Iu)] 25 mcg PO DAILY Naproxen [Naprosyn] 500 mg PO Q12HR PRN PRN Reason: Pain Discharge Medication List Albuterol Inhaler [Ventolin Hfa Inhaler] 1 puff INHALATION RT-Q6H PRN 11/30/20 [History] Apixaban [Eliquis] 2.5 mg PO BID 11/30/20 [History] Cyanocobalamin (Vitamin B-12) [Vitamin B-12] 1,000 mcg PO DAILY 11/30/20 [History] Escitalopram [Lexapro] 20 mg PO DAILY 11/30/20 [History] Folic Acid 1 mg PO DAILY 11/30/20 [History] OLANZapine [ZyPREXA] 10 mg PO HS 11/30/20 [History] busPIRone HCL 15 mg PO TID 11/30/20 [History] tiZANidine HCL [Zanaflex] 4 mg PO BID 11/30/20 [History] traZODone HCL 100 - 200 mg PO HS PRN 11/30/20 [History] Cholecalciferol [Vitamin D3 (25 Mcg = 1000 Iu)] 25 mcg PO DAILY 01/17/21 [History] Naproxen [Naprosyn] 500 mg PO Q12HR PRN 01/17/21 [History] Sennosides/Docusate Sodium [Senna Plus 8.6-50 mg Softgel] 1 cap PO DAILY PRN 01/17/21 [History] Follow up Appointment(s)/Referral(s): Greg Albert MD [Primary Care Provider] - 1-2 days Yung Huertas MD [STAFF PHYSICIAN] - 1 Week (01/30/2021 at 2:50pm) Activity/Diet/Wound Care/Special Instructions: FOLLOW UP IN ONE TO TWO DAYS WITH PRIMARY CARE PROVIDER. RETURN TO ER FOR WORSENING PROBLEMS OR CONCERNS THAT BROUGHT YOU IN. Ferrous Sulfate 325mg twice daily Discharge Disposition: HOME SELF-CARE
== END 2021-01-18 17:12 | disposition home or self-care (01) | DRG 812 ==
LOC: EC 02:22 → 5NMEDONC 02:46 → 6PED 17:01
PROVIDERS: ADMIT Hospitalist; ATTEND Hospitalist
PROC: 0DB58ZX Excision of Esophagus, Via Natural or Artificial Opening Endoscopic, Diagnostic (ICD-10-PCS; principal; 2021-01-18 11:30)
PROC: 0DJD8ZZ Inspection of Lower Intestinal Tract, Via Natural or Artificial Opening Endoscopic (ICD-10-PCS; 2021-01-18 11:30)
DX: D62 Acute posthemorrhagic anemia (principal); D68.62 Lupus anticoagulant syndrome; E66.9 Obesity, unspecified; F31.9 Bipolar disorder, unspecified; F41.9 Anxiety disorder, unspecified; L30.9 Dermatitis, unspecified; F51.01 Primary insomnia; F60.9 Personality disorder, unspecified; I25.2 Old myocardial infarction; M19.90 Unspecified osteoarthritis, unspecified site; Z87.01 Personal history of pneumonia (recurrent); J44.9 Chronic obstructive pulmonary disease, unspecified; K20.90 Esophagitis, unspecified without bleeding; G89.29 Other chronic pain; K29.70 Gastritis, unspecified, without bleeding; M79.7 Fibromyalgia; Z68.38 Body mass index [BMI] 38.0-38.9, adult; Z79.01 Long term (current) use of anticoagulants; Z79.899 Other long term (current) drug therapy; Z86.711 Personal history of pulmonary embolism; Z86.718 Personal history of other venous thrombosis and embolism; Z87.828 Personal history of other (healed) physical injury and trauma; Z87.891 Personal history of nicotine dependence; Z90.710 Acquired absence of both cervix and uterus; Z98.84 Bariatric surgery status; Z88.1 Allergy status to other antibiotic agents; Z88.5 Allergy status to narcotic agent; Z88.8 Allergy status to other drugs, medicaments and biological substances; Z87.19 Personal history of other diseases of the digestive system; Z86.14 Personal history of Methicillin resistant Staphylococcus aureus infection
CPT/HCPCS: 36415; 43239; 45378; 85025; 94640; 99285

== ENCOUNTER → 2021-07-20 | Outpatient (CLI) | payer MEDICARE ==
--- NOTE | 2021-07-26 15:13 | PE ---
Nuclear medicine PET/CT HISTORY: Solitary pulmonary nodule, initial Patient received 11.6 mCi F-18 FDG intravenously in delayed scanning was performed from the skull bas e to the mid thighs. Localization and attenuation correction CT scan was performed. Chest and neck: There is no cervical or supraclavicular adenopathy. Uptake along the oral cavity is f elt likely to be physiologic. There is no mediastinal, axillary, or hilar adenopathy. No evident susp icious uptake. No evident lung mass. No pleural or pericardial effusion. No endobronchial lesion. Terry e probable scarring present in the right midlung. ABDOMEN: No evident adrenal mass or retroperitoneal adenopathy. There is no ascites. No liver mass ev ident. Uptake along the bowel is felt likely to be physiologic but is indeterminate. Uterus and adnex al structures are not seen. No pelvic or inguinal adenopathy. Uptake at the level of the anus thought likely to be physiologic. Suspect postop changes along the anterior abdominal soft tissues are prese nt, there is some increased attenuation within the subcutaneous fat and anterior abdominal wall, martha elate for surgical history, some metallic densities are present deep to the rectus musculature. Posto p changes are present at the level the stomach. Osseous structures show degenerative disc change and facet arthropathy in the lower lumbar spine. No suspicious uptake is evident. IMPRESSION: Nonspecific findings described above.
== END | disposition home or self-care (01) ==
LOC: RADPETMAIN 13:53
PROVIDERS: ATTEND Nurse Practitioner Family
DX: M47.816 Spondylosis without myelopathy or radiculopathy, lumbar region (principal); M51.36 Other intervertebral disc degeneration, lumbar region; R91.1 Solitary pulmonary nodule
CPT/HCPCS: 78815; A9552